=== PATIENT | male | born 1970 | race Caucasian/White ===

== ENCOUNTER 2018-02-21 04:35 | Emergency (ER) | payer OTHER ==
[2018-02-21] MEDS ORDERED: LIDOCAINE 1% W/EPI 1:100,000 MDV 50 ML VIAL ONE (05:21)
[2018-02-21] MEDS ORDERED: AMOX/K CLAV 875 MG TAB ONE (05:38)
--- NOTE | 2018-02-21 05:42 | ER ---
Nurse's Notes [facility] Name: Jackson Ba Age: 47 yrs Sex: Male : 1970 Arrival Date: 02/21/2018 Time: 04:36 Bed 15 Private MD: Diagnosis: Periapical abscess without sinus Presentation: 02/21 04:48 Presenting complaint: Patient states: I woke up yesterday just feeling bad and woke up jb4 today just feeling worse. I have facial swelling to the left side of my face along with congestion and pain all over. Transition of care: patient was not received from another setting of care. Onset of symptoms was February 20, 2018. Risk Assessment: Do you want to hurt yourself or someone else? Patient reports no desire to harm self or others. Initial Sepsis Screen: Does the patient meet any 2 criteria? HR > 90 bpm. Yes Does the patient have a suspected source of infection? No. Patient's initial sepsis screen is negative. Care prior to arrival: None. 04:48 Method Of Arrival: Ambulatory jb4 04:48 Acuity: TERRANCE 3 jb4 Triage Assessment: 04:51 General: Appears in no apparent distress. uncomfortable, Behavior is calm, cooperative, jb4 appropriate for age, swelling noted to the left side of pt's face.. Pain: Complains of pain in generalized Pain currently is 7 out of 10 on a pain scale. at worst was 10 out of 10 on a pain scale. Quality of pain is described as aching. EENT: No signs and/or symptoms were reported regarding the EENT system. Neuro: Level of Consciousness is awake, alert, obeys commands, Oriented to person, place, time, situation. Cardiovascular: Heart tones S1 S2 present Patient's skin is warm and dry. Respiratory: Breath sounds are clear bilaterally. GI: No signs and/or symptoms were reported involving the gastrointestinal system. : No signs and/or symptoms were reported regarding the genitourinary system. Derm: Skin is intact, Skin is pink, warm \\T\\ dry. Musculoskeletal: Circulation, motion, and sensation intact. Historical: - Allergies: 04:57 No Known Allergies; jb4 - Home Meds: 04:51 aspirin 81 mg Oral TbEC 1 tab once daily [Active]; lisinopril 5 mg Oral tab 1 tab once jb4 daily [Active]; - PMHx: 04:51 Hypertension; Diabetes - NIDDM; jb4 - PSHx: 04:51 right hand; jb4 - Immunization history:: Adult Immunizations unknown, Flu vaccine is not up to date. - Social history:: Smoking status: Patient uses tobacco products, denies chronic smoking, but will smoke occasionally, Patient uses alcohol, on a daily basis. admits to "couple of beers" a day. - Ebola Screening: : No symptoms or risks identified at this time. Screenin:50 Abuse screen: Denies threats or abuse. Nutritional screening: No deficits noted. jb4 Tuberculosis screening: No symptoms or risk factors identified. Fall Risk None identified. Assessment: 04:50 General: see triage assessment. jb4 05:51 Reassessment: Patient appears in no apparent distress at this time. Patient and/or jb4 family updated on plan of care and expected duration. Pain level reassessed. Patient is alert, oriented x 3, equal unlabored respirations, skin warm/dry/pink. Discussed D/c, F/u with pt, denies questions or concerns. Instructed to take B/p medications as prescribed. Vital Signs: 04:51 BP 196 / 112; Pulse 92; Resp 20; Temp 97.8(O); Pulse Ox 97% on R/A; Weight 131.54 kg jb4 (R); Height 6 ft. 2 in. (187.96 cm) (R); Pain 7/10; 05:51 BP 184 / 107; Pulse 72; Resp 18; Pulse Ox 97% on R/A; jb4 04:51 Body Mass Index 37.23 (131.54 kg, 187.96 cm) jb4 04:51 provider notified of high B/p no orders at this time. jb4 05:51 Provider notified of high B/p, no orders at this time. jb4 ED Course: 04:36 Patient arrived in ED. ds1 04:47 Avelino Carrillo, ANGEL is Primary Nurse. jb4 04:50 Triage completed. jb4 04:50 Patient has correct armband on for positive identification. Bed in low position. Call [facility] light in reach. Side rails up X 1. Pulse ox on. NIBP on. 04:51 Arm band placed on. jb4 05:04 Ilia Goodrich MD is Attending Physician. gs 05:27 Assist provider with I \\T\\ D: of an abscess on left Periodontal abscess Set up I\\T\\D tray. sonia 4 Performed by Ilia Goodrich MD Patient tolerated well. 05:39 Sam Monroe DDS is Referral Physician. 05:58 Patient did not have IV access during this emergency room visit. jb4 Administered Medications: 05:27 Drug: Lidocaine-Epinephrine -1%: (1:100,000) 5 ml Volume: 20 ml; Route: Infiltration; jb4 05:31 Drug: Augmentin 875 mg Route: PO; jb4 05:50 Follow up: Response: No adverse reaction jb4 Outcome: 05:41 Discharge ordered by . 05:58 Discharged to home ambulatory. jb4 05:58 Condition: stable 05:58 Discharge instructions given to patient, Instructed on discharge instructions, follow up and referral plans. medication usage, Demonstrated understanding of instructions, follow-up care, medications, Prescriptions given X 2. 05:58 Patient left the ED. jb4 Signatures: Brandie Bowers ds1 Avelino Carrillo RN RN jb4 Ilia Goodrich MD MD Corrections: (The following items were deleted from the chart) 05:56 04:51 BP 196 / 112; Pulse 92bpm; Resp 20bpm; Pulse Ox 97% RA; Temp 97.8F Oral; 131.54 jb4 kg Reported; Height 6 ft. 2 in. Reported; BMI: 37.2; Pain 7/10; jb4 05:56 05:51 BP 184 / 107; Pulse 72bpm; Resp 18bpm; Pulse Ox 97% RA; jb4 jb4 05:57 05:51 Reassessment: Patient appears in no apparent distress at this time. Patient jb4 and/or family updated on plan of care and expected duration. Pain level reassessed. Patient is alert, oriented x 3, equal unlabored respirations, skin warm/dry/pink. jb4
--- NOTE | 2018-02-21 05:42 | EDPHYS ---
Physician Documentation [facility] Name: Jackson Ba Age: 47 yrs Sex: Male : 1970 Arrival Date: 02/21/2018 Time: 04:36 Bed 15 Private MD: ED Physician Ilia Goodrich HPI: 02/21 05:31 This 47 yrs old Male presents to ER via Ambulatory with complaints of Facial gs Swelling, Congestion, Pain All Over. 05:31 The patient presents with swelling. The problem is located in the left cheek. Onset: gs The symptoms/episode began/occurred today. Duration: The symptoms are continuous. Modifying factors: the symptoms are aggravated by chewing. Associated signs and symptoms: Pertinent negatives: dysphagia, fever, inability to eat. Severity of symptoms: At their worst the symptoms were moderate, in the emergency department the symptoms are unchanged. The patient has not experienced similar symptoms in the past. Historical: - Allergies: 04:57 No Known Allergies; jb4 - Home Meds: 04:51 aspirin 81 mg Oral TbEC 1 tab once daily [Active]; lisinopril 5 mg Oral tab 1 tab once jb4 daily [Active]; - PMHx: 04:51 Hypertension; Diabetes - NIDDM; jb4 - PSHx: 04:51 right hand; jb4 - Immunization history:: Adult Immunizations unknown, Flu vaccine is not up to date. - Social history:: Smoking status: Patient uses tobacco products, denies chronic smoking, but will smoke occasionally, Patient uses alcohol, on a daily basis. admits to "couple of beers" a day. - Ebola Screening: : No symptoms or risks identified at this time. ROS: 05:31 All other systems are negative. gs Exam: 05:31 Eyes: Pupils equal round and reactive to light, extra-ocular motions intact. Lids and gs lashes normal. Conjunctiva and sclera are non-icteric and not injected. Cornea within normal limits. Periorbital areas with no swelling, redness, or edema. Neck: Trachea midline, no thyromegaly or masses palpated, and no cervical lymphadenopathy. Supple, full range of motion without nuchal rigidity, or vertebral point tenderness. No Meningismus. Chest/axilla: Normal chest wall appearance and motion. Nontender with no deformity. No lesions are appreciated. Cardiovascular: Regular rate and rhythm with a normal S1 and S2. No gallops, murmurs, or rubs. Normal PMI, no JVD. No pulse deficits. Respiratory: Lungs have equal breath sounds bilaterally, clear to auscultation and percussion. No rales, rhonchi or wheezes noted. No increased work of breathing, no retractions or nasal flaring. Abdomen/GI: Soft, non-tender, with normal bowel sounds. No distension or tympany. No guarding or rebound. No evidence of tenderness throughout. Back: No spinal tenderness. No costovertebral tenderness. Full range of motion. Skin: Warm, dry with normal turgor. Normal color with no rashes, no lesions, and no evidence of cellulitis. MS/ Extremity: Pulses equal, no cyanosis. Neurovascular intact. Full, normal range of motion. Neuro: Awake and alert, GCS 15, oriented to person, place, time, and situation. Cranial nerves II-XII grossly intact. Motor strength 5/5 in all extremities. Sensory grossly intact. Cerebellar exam normal. Normal gait. 05:31 Constitutional: The patient appears alert, awake. 05:31 Head/face: Noted is swelling, that is mild, of the left cheek. 05:31 ENT: Dental exam: abscess, that is mild, specifically in the upper left first molar (#14). Vital Signs: 04:51 BP 196 / 112; Pulse 92; Resp 20; Temp 97.8(O); Pulse Ox 97% on R/A; Weight 131.54 kg jb4 (R); Height 6 ft. 2 in. (187.96 cm) (R); Pain 7/10; 05:51 BP 184 / 107; Pulse 72; Resp 18; Pulse Ox 97% on R/A; jb4 04:51 Body Mass Index 37.23 (131.54 kg, 187.96 cm) jb4 04:51 provider notified of high B/p no orders at this time. jb4 05:51 Provider notified of high B/p, no orders at this time. jb4 Procedures: 05:31 I \\T\\ D: Incision and drainage was performed for an abscess of the left upper left first gs molar (#14) Anesthetized with 2 ml's 1% Lidocaine w/ Epi. Incised with #11 blade. Drained small amount purulent fluid. the patient tolerated the procedure well. MDM: 05:13 Patient medically screened. 05:31 Data reviewed: vital signs, nurses notes. Counseling: I had a detailed discussion with the patient and/or guardian regarding: the historical points, exam findings, and any diagnostic results supporting the discharge/admit diagnosis, the need for outpatient follow up. Administered Medications: 05:27 Drug: Lidocaine-Epinephrine -1%: (1:100,000) 5 ml Volume: 20 ml; Route: Infiltration; jb4 05:31 Drug: Augmentin 875 mg Route: PO; jb4 05:50 Follow up: Response: No adverse reaction jb4 Disposition: 02/21/18 05:41 Discharged to Home. Impression: Periapical abscess without sinus. - Condition is Stable. - Discharge Instructions: Dental Abscess. - Prescriptions for Augmentin 875- 125 mg Oral Tablet - take 1 tablet by ORAL route every 12 hours for 7 days; 13 tablet. Tylenol- Codeine #4 300-60 mg Oral Tablet - take 1 tablet by ORAL route every 6 hours As needed; 10 tablet. - Work release form, Medication Reconciliation Form, Thank You Letter, Antibiotic Education, Prescription Opioid Use form. - Follow up: Sam Monroe DDS; When: 2 - 3 days; Reason: Re-evaluation by your physician. Signatures: Avelino Carrillo RN RN 4 Ilia Goodrich MD MD Corrections: (The following items were deleted from the chart) 05:58 05:41 02/21/2018 05:41 Discharged to Home. Impression: Periapical abscess without jb4 sinus. Condition is Stable. Forms are Medication Reconciliation Form, Thank You Letter, Antibiotic Education, Prescription Opioid Use. Follow up: Sam Monroe; When: 2 - 3 days; Reason: Re-evaluation by your physician.
== END 2018-02-21 05:58 | disposition home or self-care (01) ==
LOC: ER 04:35
PROC: 0C9WXZ0 Drainage of Upper Tooth, External Approach, Single (ICD-10-PCS; principal; 2018-02-21)
DX: K04.7 Periapical abscess without sinus (principal); I10 Essential (primary) hypertension; E11.9 Type 2 diabetes mellitus without complications; Z72.0 Tobacco use; Z79.82 Long term (current) use of aspirin
CPT/HCPCS: 99284

== ENCOUNTER 2024-03-21 09:05 | Inpatient (IN) | payer OTHER, SELFPAY ==
--- OUTSIDE RECORDS SUMMARY | 2024-03-21 09:08 | XMS REPORT | Continuity of Care Document ---
Author Name Unknown Address [address] [place] [address] [facility] Address [address] [place] [address] Care Team Providers Care Director Veterinary Name Role Phone Unavailable Unavailable Unavailable Encounters Start Date/Time End Date/Time Encounter Type Admission Type Attending Clinicians Care Facility Care Department Encounter ID Source 2021-12-30 15:46:00 2021-12-30 15:46:00 Outpatient Shonda Jeong [facility] [id number] 3 [facility] Results Test Description Test Time Test Comments Results Result Co mments Source COMPREHENSIVE METABOLIC [id number] 05:55:15* Test Item Value Reference Range Interpretation Comme nts GLUCOSE (test code = 2217) 100 MG/DL 70-99 H BUN (test code = 2208) 15 MG/DL 6-20 CREATININE (test code = 2214) 1.07 MG/DL 0.80-1.40 eGFR (2020 CKD-EPI) (test code = 61914) 83 ML/MIN/1.73 >60 CALC BUN/CREAT (test code = 2235) 14 RATIO 6-28 SODIUM (test code = 2231) 142 MEQ/L 133-146 POTASSIUM (test code = 2228) 4.3 MEQ/L 3.5-5.4 CHLORIDE (test code = 2215) 103 MEQ/L 95-107 CARBON DIOXIDE (test code = 2206) 26 MEQ/L 19-31 CALCIUM (test code = 2209) 9.8 MG/DL 8.5-10.5 PROTEIN, TOTAL (test code = 2229) 8.0 G/DL 6.1-8.3 ALBUMIN (test code = 2201) 4.3 G/DL 3.5-5.2 CALC GLOBULIN (test code = 2240) 3.7 G/DL 1.9-3.7 CALC A/G RATIO (test code = 2234) 1.2 RATIO 1.0-2.6 BILIRUBIN, TOTAL (test code = 2207) 0.5 MG/DL See_Comment [Automated [employer] ssage] The system which generated this result transmitted reference range: <=1.2. The reference range was not used to interpret this result as normal/abnormal. ALKALINE PHOSPHATASE (test code = 2204) 77 U/L 40-121 AST (test code = 2218) 16 U/L 9-50 ALT (test code = 2219) 22 U/L 5-50 UNLESS OTHERWISE INDICATED, ALL TESTING PERFORMED [facility] [address] [place] [id number] DOORKEEPER: RUBEN ARAGON M.D. CLIA NUMBER [id number] [facility] [place]. [id number] CBC W/AUTO DIFF WITH [id number] 05:52:05* Test Item Value Reference Range Interpretation Comme nts WBC (test code = 1001) 5.4 K/UL 3.5-11.0 RBC (test code = 1002) 4.98 M/UL 4.50-6.10 HEMOGLOBIN (test code = 1003) 16.1 G/DL 13.5-17.0 HEMATOCRIT (test code = 1004) 46.9 % 40.0-51.0 MCV (test code = 1005) 94.2 fL 80.0-99.0 MCH (test code = 1006) 32.3 PG 25.0-33.0 MCHC (test code = 1007) 34.3 G/DL 31.0-36.0 RDW (test code = 1038) 11.7 % 11.5-15.0 NEUTROPHILS (test code = 1008) 60.2 % LYMPHOCYTES (test code = 1010) 28.9 % MONOCYTES (test code = 1011) 8.8 % EOSINOPHILS (test code = 1012) 1.1 % BASOPHILS (test code = 1013) 0.6 % IMMATURE GRANYLOCYTES (test code = 1036) 0.4 % NUCLEATED RBCS (test code = 1065) 0.0 /100 WBC'S See_Comment [Automated messa ge] The system which generated this result transmitted reference range: 0.0. The reference range was not used to interpret this result as normal/abnormal. PLATELET COUNT (test code = 1015) 181 K/UL 130-400 ABSOLUTE NEUTROPHILS (test code = 1066) 3.23 K/UL 1.50-7.50 ABSOLUTE LYMPHOCYTES (test code = 1067) 1.55 K/UL 1.00-4.00 ABSOLUTE MONOCYTES (test code = 1068) 0.47 K/UL 0.20-1.00 ABSOLUTE EOSINOPHILS (test code = 1040) 0.06 K/UL 0.00-0.50 ABSOLUTE BASOPHILS (test code = 1069) 0.03 K/UL 0.00-0.20 ABS IMMATURE GRANULOCYTES (test code = 1020) 0.02 K/UL 0.00-0.10 ABS NUCLEATED RBCS (test code = 00275) 0.00 K/UL 0.00-0.11
[2024-03-21] MEDS ORDERED: ONDANSETRON 4 MG/2 ML VIAL ONE (09:22)
[2024-03-21] MEDS ORDERED: HYDROMORPHONE HCL 1 MG/ML INJ ONE ×2 (09:22→12:20)
[2024-03-21] MEDS ORDERED: LABETALOL 20 MG/4ML SYRINGE IV ONE ×2 (09:22→10:21)
[2024-03-21 09:50] LABS: Absolute Basophils 0.1 K/uL (0-0.5); Absolute Lymphocytes (CBC) 0.9 K/uL (0.7-4.9); Absolute Monocytes 0.5 K/uL (0.1-1.3); Absolute Neutrophil 9.5 K/uL (1.8-8.0); Basophils % 0.7 % (0-1.3); Eosinophils % 0.1 % (0-4.4); Hematocrit 49.3 % (39.6-49.0); Hemoglobin 16.4 g/dL (13.6-17.9); Lymphocytes % 8.6 % (15.3-44.8); MCH 32.7 pg (27.0-35.0); MCHC 33.3 g/dL (32.0-36.0); MCV 98.1 fL (80-100); MPV 9.7 fL (7.6-11.3); Monocytes % 4.7 % (3.3-12.3); Neutrophils % 85.9 % (41.7-73.7); Platelets 167 thou/uL (152-406); RBC Red Blood Cell Count 5.02 M/uL (4.33-5.43); Red Cell Distribution Width 13.3 % (12.1-15.2)
--- NOTE | 2024-03-21 09:57 | RAD REPORT ---
EXAM: CT brain without contrast HISTORY: Fall with head injury. Hypertension urgency. COMPARISON: None TECHNIQUE: Multiple contiguous axial images were obtained and a CT of the brain without contrast.. Sagittal and coronal reconstruction performed. Automated exposure control, adjustment of the mA and/or kV according to patient size, and/or iterative reconstruction. Unless otherwise specified, incidental f indings do not require dedicated imaging follow-up FINDINGS: An intracranial bleed is not seen Ventricles are normal caliber No extra-axial fluid collection noted 1.5 cm low-density area left basal ganglia. Additional old lacunar infarctions right and left bowel mass and bilateral basal ganglia. No fluid within the visualized sinuses or mastoids noted. IMPRESSION: 1.5 cm low-density area left basal ganglia has the appearance of an infarction. The age is indetermin ate. MRI is recommended. Additional old lacunar infarctions right and left thalamus and basal ganglia
[2024-03-21 10:01] LABS: PT Prothrombin Time 12.2 SECONDS (9.4-12.5); Protime INR 1.09
--- NOTE | 2024-03-21 10:02 | RAD REPORT ---
EXAMINATION: CT LUMBAR SPINE WITHOUT CONTRAST CLINICAL INDICATION: Fall with back pain TECHNIQUE: Axial CT images were obtained through the lumbar spine in soft tissue and bone windows wit hout intravenous contrast. Coronal and Sagittal reformatted images were created from the data set. One or more of the following dose reduction techniques were used: Automated exposure control, adjustm ent of the mA and/ or kV according to patient size, and/or iterative reconstruction. Unless otherwise specified, incidental findings do not require dedicated imaging follow-up. COMPARISON: No prior exam. FINDINGS: For purposes of this dictation, it is assumed that there are 5 non rib-bearing lumbar type vertebrae, and the most caudal fully segmented lumbar vertebra is labeled L5. Mild to moderate compression fracture L2 vertebral body estimated 30%.. Retropulsion of bone into the spinal canal results in an approximately 10% narrowing of the thecal sac. No dislocation.. Spondylosis L3-4 results in mild to moderate narrowing of the thecal sac. Slight anterior subluxation L5 on S1. Spondylolysis L5 IMPRESSION: Mild to moderate compression fracture L2 vertebral body appears acute. Spondylosis L3-4 results in mild to moderate central spinal stenosis
--- NOTE | 2024-03-21 10:04 | RAD REPORT ---
Procedure: Chest Single View HISTORY: Hypertension COMPARISON: none FINDINGS: The lungs appear clear of acute infiltrate. No significant pleural effusion noted. The heart is normal size. IMPRESSION: No acute abnormality is displayed.
[2024-03-21 10:15] LABS: Albumin 3.7 g/dL (3.4-5.0); Albumin/Globulin Ratio 0.8 (1.1-1.8); Anion Gap 8.8 mEq/L (5.0-15.0); Bilirubin Direct 0.2 mg/dL (0-0.2); Bilirubin Indirect, Calculated 0.4 mg/dL (0.2-0.8); Bilirubin Total 0.6 mg/dL (0.2-1.0); Globulin 4.6 g/dL (2.3-3.5); Magnesium 1.9 mg/dL (1.6-2.4); Potassium 3.8 mEq/L (3.5-5.1); Protein, Total 8.3 g/dL (6.4-8.2)
[2024-03-21] MEDS ORDERED: LABETALOL HCL 100 MG/20 ML ONE (10:47)
--- NOTE | 2024-03-21 10:54 | ER ---
Nurse's Notes [facility] Name: Jackson Ba Age: 54 yrs Sex: Male : 1970 Arrival Date: 03/21/2024 Time: 09:05 Bed 3 Private MD: Diagnosis: Basal ganglia infarct, lumbar compression fracture, hypertensive urgency Presentation: 03/21 09:10 Chief complaint: EMS states: patient fell about 0330 this morning, complains of lower ko1 back pain. Coronavirus screen: At this time, the client does not indicate any symptoms associated with coronavirus-19. Ebola Screen: No symptoms or risks identified at this time. Initial Sepsis Screen: Does the patient meet any 2 criteria? No. Patient's initial sepsis screen is negative. Does the patient have a suspected source of infection? No. Patient's initial sepsis screen is negative. Risk Assessment: Do you want to hurt yourself or someone else? Patient reports no desire to harm self or others. Onset of symptoms was March 21, 2024. Care prior to arrival: Medication(s) given: fentanyl 100mcg iv total (2 separate doses), labetolol 20mg IV total (2 separate doses) IV initiated. 18 GA, in the left antecubital area. Mechanism of Injury: Fall from standing position. 09:10 Method Of Arrival: EMS: [facility] ko1 09:10 Acuity: TERRANCE 3 ko1 Triage Assessment: 09:18 General: Appears uncomfortable, Behavior is calm, cooperative, appropriate for age. ko1 Pain: Complains of pain in lower back and back of knees. Historical: - Allergies: 09:18 No Known Allergies; ko1 - PMHx: 09:18 Hypertension; Diabetes - NIDDM; ko1 - PSHx: 09:18 None; ko1 - Immunization history:: Adult Immunizations unknown. - Infectious Disease History:: Denies. - Social history:: Smoking status: Patient denies any tobacco usage or history of. Screenin:30 [place] ED Fall Risk Assessment (Adult) History of falling in the last 3 months, ko1 including since admission Yes- single mechanical fall (1 pt) Confusion or Disorientation No (0 pts) Intoxicated or Sedated No (0 pts) Impaired Gait No (0 pts) Mobility Assist Device Used No (0 pt) Altered Elimination No (0 pt) Score/Fall Risk Level 0 - 2 = Low Risk Oriented to surroundings, Maintained a safe environment, Educated pt \T\ family on fall prevention, incl call for assistance when getting out of bed, Assessed \T\ reinforced patient's understanding of fall precautions, Provided non-skid footwear, Hourly rounding (assess needs \T\ fall precautionary measures) done. Abuse screen: Denies threats or abuse. Denies injuries from another. Nutritional screening: No deficits noted. Tuberculosis screening: No symptoms or risk factors identified. Assessment: 09:27 Neuro: No deficits noted. Cardiovascular: Patient's skin is warm and dry. high blood ko1 pressure. Respiratory: No deficits noted. GI: No deficits noted. : No deficits noted. EENT: No deficits noted. Derm: No deficits noted. Musculoskeletal: Reports pain in posterior aspect of left knee. Vital Signs: 09:10 BP 216 / 144; Pulse 104; Resp 15; Temp 97.6; Pulse Ox 98% on R/A; Weight 120.2 kg; ko1 09:30 BP 217 / 145; Pulse 97; Resp 14; Pulse Ox 97% ; ko1 09:41 BP 195 / 132; Pulse 91; Resp 15; Pulse Ox 95% on R/A; ko1 10:09 BP 205 / 135; Pulse 90; Resp 15; Pulse Ox 96% ; ko1 10:43 BP 210 / 132; Pulse 98; Resp 16; Pulse Ox 95% ; ko1 11:22 BP 184 / 109; Pulse 84; Resp 15; Pulse Ox 95% ; ko1 11:41 BP 158 / 102; Pulse 83; Resp 15; Pulse Ox 96% ; ko1 11:56 BP 167 / 96; Pulse 82; Resp 15; Pulse Ox 99% ; ko1 12:03 BP 211 / 190; Pulse 106; Resp 16; Pulse Ox 91% ; me1 12:15 BP 145 / 75; Pulse 96; Resp 16; Pulse Ox 91% ; me1 12:30 BP 154 / 92; Pulse 83; Resp 15; Pulse Ox 91% ; me1 12:45 BP 149 / 90; Pulse 72; Resp 14; Pulse Ox 91% ; me1 13:00 BP 146 / 96; Pulse 85; Resp 16; Temp 98.6; Pulse Ox 92% ; me1 ED Course: :09 Patient arrived in ED. sp3 09:09 Shlomo Rosales MD is Attending Physician. sp3 09:09 Pamela Irene, RN is Primary Nurse. ko1 09:18 Triage completed. ko1 09:18 Arm band placed on right wrist. Patient placed in an exam room, on a stretcher, on ko1 child monitor, on pulse oximetry, Patient notified of wait time. 09:30 Patient has correct armband on for positive identification. Bed in low position. Call ko1 light in reach. Side rails up X2. Provided Education on: labs. meds. Client placed on continuous cardiac and pulse oximetry monitoring. NIBP monitoring applied. potline monitor on. Door closed. Noise minimized. Lights dimmed. Pillow given. 09:30 Maintain EMS IV. Dressing intact. Good blood return noted. Site clean \T\ dry. Gauge \T\ ko 1 site: 18g L ac. Flushed with 10 mL NS. 09:31 CT Head Brain wo Cont In Process Unspecified. EDMS 09:32 CT Lumbar Spine Wo Con In Process Unspecified. EDMS 09:42 Basic Metabolic Panel Sent. ko1 09:42 CBC with Diff Sent. ko1 09:42 LFT's Sent. ko1 09:42 Magnesium Sent. ko1 09:42 NT PRO-BNP Sent. ko1 09:42 PT-INR Sent. ko1 09:42 Troponin HS Sent. ko1 09:48 EKG done, by ED staff, reviewed by Shlomo Rosales MD. em1 09:57 XRAY Chest (1 view) In Process Unspecified. EDMS 10:54 Dakota Quintanilla is Hospitalizing Provider. sp3 11:56 Report given to Loyda Cohen RN. ko1 13:06 No provider procedures requiring assistance completed. Patient admitted, IV remains in me1 place. Administered Medications: 09:30 Drug: Ondansetron IVP 4 mg IVP once; over 2 minutes Route: IVP; Site: left antecubital; ko1 09:45 Follow up: Response: No adverse reaction ko1 09:33 Drug: HYDROmorphone IVP 1 mg IVP once Route: IVP; Site: left antecubital; ko1 09:48 Follow up: Response: No adverse reaction; Pain is decreased ko1 09:38 Drug: Labetalol IV 20 mg IV at calculated rate once Route: IV; Rate: calculated rate; ko1 Site: left antecubital; 09:41 Follow up: Response: No adverse reaction; IV Status: Completed infusion me1 09:53 Follow up: Response: No adverse reaction ko1 10:22 Drug: Labetalol IV 20 mg IV at calculated rate once over 2 mins Route: IV; Rate: ko1 calculated rate; Infused Over: 2 mins; Site: left antecubital; 10:26 Follow up: Response: No adverse reaction; IV Status: Completed infusion me1 10:37 Follow up: Response: No adverse reaction ko1 10:51 Drug: Labetalol IV 40 mg IV at calculated rate once over 2 mins Route: IV; Rate: ko1 calculated rate; Infused Over: 2 mins; Site: left antecubital; 11:00 Follow up: Response: No adverse reaction; IV Status: Completed infusion me1 11:07 Drug: Aspirin PO 325 mg PO once Route: PO; ko1 11:37 Follow up: Response: No adverse reaction ko1 11:07 Drug: niCARdipine IV 5 mg/hr IV at calculated rate See Administration Instructions; ko1 (Standard concentration 25 mg / 250 mL NS); Recommended max rate 15 mg/hr; Titrate 2.5 mg/hr as often as every 15 minutes to achieve goal (see titration policy); Goal parameter SBP less than 160 mmHg Route: IV; Rate: calculated rate; Site: left antecubital; 11:25 Follow up: Rate change 10 mg/hr ko1 13:36 Follow up: IV Status: Infusion continued upon admission me1 12:27 Drug: HYDROmorphone IVP 1 mg IVP once Route: IVP; Site: left antecubital; me1 12:59 Follow up: Response: No adverse reaction; Pain is decreased me1 Medication: 11:41 VIS not applicable for this client. ko1 Outcome: 10:54 Decision to Hospitalize by Provider. sp3 13:06 Admitted to ICU accompanied by nurse, via stretcher, room -5, on monitor, with chart, me1 Report called to ANGEL Suarez 13:06 Condition: stable 13:06 Instructed on the need for admit, 13:36 Patient left the ED. me1 Signatures: Dispatcher [employer] Duy Hampton em1 Shlomo Rosales MD MD sp3 Pamela Irene RN RN ko1 Loyda Vo, RN RN me1
--- NOTE | 2024-03-21 10:54 | EDPHYS ---
Physician Documentation [facility] Name: Jackson Ba Age: 54 yrs Sex: Male : 1970 Arrival Date: 03/21/2024 Time: 09:05 Bed 3 Private MD: ED Physician Shlomo Rosales HPI: 03/21 09:37 This 54 yrs old Male presents to ER via EMS with complaints of Fall Injury. sp3 09:37 54-year-old male with history of hypertension and diabetes, noncompliant and has not sp3 seen a doctor in over 15 years and is on no medications now presents to the ED with chief complaint low back pain from a mechanical fall. Patient states she has had chronic back pain for years and when he got up to use the bathroom at 3 AM he had a bout of pain, tripped and then fell. He landed on his lower back at that time. He denies any other injury including head injury, neck injury upper torso or other extremity injury. He currently denies headache, neck pain, chest pain, shortness of breath, upper back pain, abdominal pain, extremity pain, or any other signs or symptoms on ROS at this time. Patient was hypotensive for EMS in the 230s systolic.. Historical: - Allergies: 09:18 No Known Allergies; ko1 - PMHx: 09:18 Hypertension; Diabetes - NIDDM; ko1 - PSHx: 09:18 None; ko1 - Immunization history:: Adult Immunizations unknown. - Infectious Disease History:: Denies. - Social history:: Smoking status: Patient denies any tobacco usage or history of. ROS: 09:38 Constitutional: Negative for fever, chills, and weight loss, Eyes: Negative for injury, sp3 pain, redness, and discharge, Neck: Negative for injury, pain, and swelling, Respiratory: Negative for shortness of breath, cough, wheezing, and pleuritic chest pain, Abdomen/GI: Negative for abdominal pain, nausea, vomiting, diarrhea, and constipation, MS/Extremity: Negative for injury and deformity, Skin: Negative for injury, rash, and discoloration, Neuro: Negative for headache, weakness, numbness, tingling, and seizure, Psych: Negative for depression, anxiety, suicide ideation, homicidal ideation, and hallucinations, Allergy/Immunology: Negative for hives, rash, and allergies, Endocrine: Negative for neck swelling, polydipsia, polyuria, polyphagia, and marked weight changes, 09:38 All other systems are negative, Exam: 09:39 Constitutional: This is a well developed, well nourished patient who is awake, alert, sp3 and in no acute distress. Head/Face: Normocephalic, atraumatic. Eyes: Pupils equal round and reactive to light, extra-ocular motions intact. Lids and lashes normal. Conjunctiva and sclera are non-icteric and not injected. Cornea within normal limits. Periorbital areas with no swelling, redness, or edema. ENT: Nares patent. No nasal discharge, no septal abnormalities noted. External auditory canals are clear. Oropharynx with no redness, swelling, or masses, exudates, or evidence of obstruction, uvula midline. Mucous membranes moist. Neck: Trachea midline, no thyromegaly or masses palpated, and no cervical lymphadenopathy. Supple, full range of motion without nuchal rigidity, or vertebral point tenderness. No Meningismus. Chest/axilla: Normal chest wall appearance and motion. Nontender with no deformity. No lesions are appreciated. Respiratory: Lungs have equal breath sounds bilaterally, clear to auscultation and percussion. No rales, rhonchi or wheezes noted. No increased work of breathing, no retractions or nasal flaring. Abdomen/GI: Soft, non-tender, with normal bowel sounds. No distension or tympany. No guarding or rebound. No evidence of tenderness throughout. Skin: Warm, dry with normal turgor. Normal color with no rashes, no lesions, and no evidence of cellulitis. MS/ Extremity: Pulses equal, no cyanosis. Neurovascular intact. Full, normal range of motion. Neuro: Awake and alert, GCS 15, oriented to person, place, time, and situation. Cranial nerves II-XII grossly intact. Motor strength 5/5 in all extremities. Sensory grossly intact. Cerebellar exam normal. Normal gait. Psych: Awake, alert, with orientation to person, place and time. Behavior, mood, and affect are within normal limits. 09:39 Cardiovascular: Blood pressure significantly high at 216/144., 09:39 Back: Pain to palpation in the lower back musculature. Positive pain on straight leg raise particularly right greater than left. No upper back pain, step-offs or other abnormalities noted., 09:40 ECG was reviewed by the Attending Physician. EKG demonstrates normal sinus rhythm at sp3 100 bpm with normal intervals except for 56, leftward axis, high voltage, nonspecific diffuse ST/T changes without evidence of acute ischemia. Vital Signs: 09:10 BP 216 / 144; Pulse 104; Resp 15; Temp 97.6; Pulse Ox 98% on R/A; Weight 120.2 kg; ko1 09:30 BP 217 / 145; Pulse 97; Resp 14; Pulse Ox 97% ; ko1 09:41 BP 195 / 132; Pulse 91; Resp 15; Pulse Ox 95% on R/A; ko1 10:09 BP 205 / 135; Pulse 90; Resp 15; Pulse Ox 96% ; ko1 10:43 BP 210 / 132; Pulse 98; Resp 16; Pulse Ox 95% ; ko1 11:22 BP 184 / 109; Pulse 84; Resp 15; Pulse Ox 95% ; ko1 11:41 BP 158 / 102; Pulse 83; Resp 15; Pulse Ox 96% ; ko1 11:56 BP 167 / 96; Pulse 82; Resp 15; Pulse Ox 99% ; ko1 12:03 BP 211 / 190; Pulse 106; Resp 16; Pulse Ox 91% ; me1 12:15 BP 145 / 75; Pulse 96; Resp 16; Pulse Ox 91% ; me1 12:30 BP 154 / 92; Pulse 83; Resp 15; Pulse Ox 91% ; me1 12:45 BP 149 / 90; Pulse 72; Resp 14; Pulse Ox 91% ; me1 13:00 BP 146 / 96; Pulse 85; Resp 16; Temp 98.6; Pulse Ox 92% ; me1 MDM: 09:09 Medical Screening Exam initiated sp3 09:39 Data reviewed: vital signs, nurses notes, lab test result(s), EKG, radiologic studies. sp3 ED course: 54-year-old male with low back pain secondary to mechanical fall on a chronic back pain scenario. Patient also has been noncompliant for his chronic medical conditions including hypertension and diabetes. Currently blood pressure 216/144. Differential diagnosis includes hypertensive urgency versus emergency, low back pain due to musculoskeletal injury soft tissue versus bone. I am not highly suspicious of aortic pathology, GI pathology, pathology, CVA/TIA or any other critical process. Workup will include CT scan of the lumbar spine from a trauma standpoint and from hypertensive urgency standpoint full workup EKG, CT head, chest x-ray, labs and general supportive care. Labetalol, Dilaudid and ondansetron IV for symptomatic control. Disposition pending workup and patient course.. 10:41 ED course: CT demonstrates small basal ganglia infarct, and L2 compression fracture. sp3 Will place on for the labetalol as needed for hypertensive urgency. Patient will be admitted to medicine service.. 03/21 09:13 Order name: Basic Metabolic Panel; Complete Time: 10:17 sp3 03/21 09:13 Order name: CBC with Diff; Complete Time: 11:21 sp3 03/21 09:13 Order name: LFT's; Complete Time: 10:17 sp3 03/21 09:13 Order name: Magnesium; Complete Time: 10:17 sp3 03/21 09:13 Order name: NT PRO-BNP; Complete Time: 10:17 sp3 03/21 09:13 Order name: PT-INR; Complete Time: 10:07 sp3 03/21 09:13 Order name: Troponin HS; Complete Time: 10:17 sp3 03/21 11:17 Order name: CBC Smear Scan; Complete Time: 11:21 EDMS 03/21 12:45 Order name: Thyroid Stimulating Hormone EDMS 03/21 12:45 Order name: CBC with Automated Diff EDMS 03/21 12:45 Order name: CBC with Automated Diff EDMS 03/21 12:45 Order name: CBC with Automated Diff EDMS 03/21 12:45 Order name: CBC with Automated Diff EDMS 03/21 12:45 Order name: Comprehensive Metabolic Panel EDMS 03/21 12:45 Order name: Comprehensive Metabolic Panel EDMS 03/21 12:45 Order name: Comprehensive Metabolic Panel EDMS 03/21 12:45 Order name: Comprehensive Metabolic Panel EDMS 03/21 12:45 Order name: Lipid Profile EDMS 03/21 12:45 Order name: Lipid Profile EDMS 03/21 12:45 Order name: Magnesium EDMS 03/21 12:45 Order name: Magnesium EDMS 03/21 12:45 Order name: Magnesium EDMS 03/21 12:45 Order name: Magnesium EDMS 03/21 12:45 Order name: Protime (+INR) EDMS 03/21 12:45 Order name: Protime (+INR) EDMS 03/21 12:45 Order name: PTT, Activated Partial Thromb EDMS 03/21 12:45 Order name: PTT, Activated Partial Thromb EDMS 03/21 09:13 Order name: XRAY Chest (1 view); Complete Time: 10:07 sp3 03/21 09:13 Order name: CT Head Brain wo Cont; Complete Time: 10:07 sp3 03/21 09:13 Order name: CT Lumbar Spine Wo Con; Complete Time: 10:07 sp3 03/21 12:45 Order name: CONS Physician Consult EDNV 03/21 09:13 Order name: Cardiac monitoring; Complete Time: 09:20 sp3 03/21 09:13 Order name: EKG - Nurse/Tech; Complete Time: 09:42 sp3 03/21 09:13 Order name: IV Saline Lock; Complete Time: 09:20 sp3 03/21 09:13 Order name: Labs collected and sent; Complete Time: 09:42 sp3 03/21 09:13 Order name: O2 Per Protocol; Complete Time: 09:20 sp3 03/21 09:13 Order name: O2 Sat Monitoring; Complete Time: 09:20 sp3 Administered Medications: 09:30 Drug: Ondansetron IVP 4 mg IVP once; over 2 minutes Route: IVP; Site: left antecubital; ko1 09:45 Follow up: Response: No adverse reaction ko1 09:33 Drug: HYDROmorphone IVP 1 mg IVP once Route: IVP; Site: left antecubital; ko1 09:48 Follow up: Response: No adverse reaction; Pain is decreased ko1 09:38 Drug: Labetalol IV 20 mg IV at calculated rate once Route: IV; Rate: calculated rate; ko1 Site: left antecubital; 09:41 Follow up: Response: No adverse reaction; IV Status: Completed infusion me1 09:53 Follow up: Response: No adverse reaction ko1 10:22 Drug: Labetalol IV 20 mg IV at calculated rate once over 2 mins Route: IV; Rate: ko1 calculated rate; Infused Over: 2 mins; Site: left antecubital; 10:26 Follow up: Response: No adverse reaction; IV Status: Completed infusion me1 10:37 Follow up: Response: No adverse reaction ko1 10:51 Drug: Labetalol IV 40 mg IV at calculated rate once over 2 mins Route: IV; Rate: ko1 calculated rate; Infused Over: 2 mins; Site: left antecubital; 11:00 Follow up: Response: No adverse reaction; IV Status: Completed infusion me1 11:07 Drug: Aspirin PO 325 mg PO once Route: PO; ko1 11:37 Follow up: Response: No adverse reaction ko1 11:07 Drug: niCARdipine IV 5 mg/hr IV at calculated rate See Administration Instructions; ko1 (Standard concentration 25 mg / 250 mL NS); Recommended max rate 15 mg/hr; Titrate 2.5 mg/hr as often as every 15 minutes to achieve goal (see titration policy); Goal parameter SBP less than 160 mmHg Route: IV; Rate: calculated rate; Site: left antecubital; 11:25 Follow up: Rate change 10 mg/hr ko1 13:36 Follow up: IV Status: Infusion continued upon admission me1 12:27 Drug: HYDROmorphone IVP 1 mg IVP once Route: IVP; Site: left antecubital; me1 12:59 Follow up: Response: No adverse reaction; Pain is decreased me1 Disposition Summary: 03/21/24 10:54 Hospitalization Ordered Notes: Hospitalization Status: Inpatient Admission sp3 Provider: Dakota Quintanilla sp3 Condition: Stable sp3 Problem: an acute exacerbation sp3 Symptoms: have worsened sp3 Bed/Room Type: Standard sp3 Location: Intensive Care Unit(03/21/24 12:43) eb Room Assignment: -(03/21/24 12:43) eb Diagnosis - Basal ganglia infarct, lumbar compression fracture, hypertensive urgency sp3 Forms: - Medication Reconciliation Form sp3 - SBAR form sp3 - Leadership Thank You Letter sp3 Critical care time excluding procedures: 10:42 Critical care time: Bedside Care: 20 minutes, Consultation: 10 minutes. Total time: 30 sp3 minutes Signatures: Dispatcher [employer] Mary Matthew Setul, MD MD sp3 Pamela Irene RN RN ko1 Loyda Vo RN RN me1 Corrections: (The following items were deleted from the chart) 09:14 09:13 BASIC METABOLIC PANEL+C.LAB.BRZ ordered. EDMS EDMS 09:14 09:13 CBC+H.LAB.BRZ ordered. EDMS EDMS 09:14 09:13 HEPATIC FUNCTION+C.LAB.BRZ ordered. EDMS EDMS 09:14 09:13 MAGNESIUM+C.LAB.BRZ ordered. EDMS EDMS 09:14 09:13 PROBNP+C.LAB.BRZ ordered. EDMS EDMS 09:14 09:13 PROTIME (+INR)+COAG.LAB.BRZ ordered. EDMS EDMS 09:14 09:13 Troponin High Sensitivity+C.LAB.BRZ ordered. EDMS EDMS 09:14 09:14 Chest Single View+RAD.RAD.BRZ ordered. EDMS EDMS 09:14 09:14 Head Brain Wo Cont+CT.RAD.BRZ ordered. EDMS EDMS 09:14 09:14 Spine Lumbar Wo Con+CT.RAD.BRZ ordered. EDMS EDMS 12:43 10:54 Telemetry/MedSurg (Inpatient) sp3 eb 12:43 10:54 sp3 eb
[2024-03-21] MEDS ORDERED: Nicardipine/NS 25 MG/250 ML KIT IV ONE (10:59)
[2024-03-21] MEDS ORDERED: ASPIRIN 325 MG TAB ONE (11:05)
[2024-03-21 11:16] LABS: Blood Morphology Comment NOT SEEN (NOT SEEN); Platelet Estimate ADEQ; White Blood Cell Scan OK (OK)
--- NOTE | 2024-03-21 11:51 | P.HP ---
Certification for Inpatient Patient admitted to: Inpatient With expected LOS: >2 Midnights Patient will require the following post-hospital care: Rehabilitation Practitioner: I am a practitioner with admitting privileges, knowledge of patient current condition, hospital course, and medical plan of care. Services: Services provided to patient in accordance with Admission requirements found in Title 42 Section 412.3 of the Code of Federal Regulations Patient History Date of Service: 03/21/24 Primary Care Provider: None Reason for admission: back pain, leg weakness History of Present Illness: Mr. Ba is a 54-year-old male who denies medical problems. He sees no PCP and takes no home medications. For the past 3 days to 1 week, patient has had back pain. He states at 3 AM he got up to go to the bathroom and fell flat on his back and was unable to get up. He states he crawled to his chair and called a friend to pick him up this morning. He denies dizziness, seizure, chest pain, or shortness of breath. On exam he is a disheveled, older than stated age, incontinent gentleman with hypertensive urgency in the emergency department with initial pressures of 216/144. Patient is a daily drinker who says the amount varies. He denies history of DTs. In the emergency department workup he was found to have acute 1.5 cm basal ganglia infarct, and acute L2 vertebral body 30% compression fracture with approximately 10% narrowing of the thecal sac, spondylosis of L3-4 resulting in mild to moderate narrowing of the thecal sac, slight anterior subluxation of L5 on S1, and spondylosis of L5. On exam, his left leg has decreased sensation and decreased movement, unable to differentiate if it is secondary to CVA or from acute vertebral fracture neuropathy. He has slightly slurred speech and states he is noted that occurring over the past week. After multiple unsuccessful rounds of labetalol he was placed on a Cardene drip. He will be admitted to ICU for further evaluation and treatment. Allergies No Known Allergies Allergy (Unverified 12/27/15 06:03) Home medications list reviewed: Yes (none) - Past Medical/Surgical History Has patient received pneumonia vaccine in the past: No -: Hypertension -: Alcohol misuse -: Previous CVA -: Back pain -: Right carpal tunnel repair Psychosocial/ Personal History: Lives alone. Drinks daily. - Family History Father History Unknown: Yes Mother History Unknown: Yes - Social History Smoking Status: Never smoker Alcohol use: Yes CD- Drugs: No Caffeine use: Yes Place of Residence: Home Review of Systems 10-point ROS is otherwise unremarkable General: Weakness, Malaise Eyes: Unremarkable ENT: Unremarkable Respiratory: Unremarkable Cardiovascular: Unremarkable Gastrointestinal: Unremarkable Genitourinary: Incontinence, As per HPI Musculoskeletal: Back Pain, As per HPI Integumentary: Unremarkable Neurological: Weakness, Numbness, Incoordination, Change in Speech, As per HPI Lymphatics: Unremarkable Physical Examination - Vital Signs Blood Pressure: 167/96 Pulse: 96 Respirations: 20 Pulse Ox (%): 93 - Physical Exam General: Alert, Oriented x3, Disheveled, Other (Incontinent) HEENT: Atraumatic, Normocephalic Neck: JVD not distended Respiratory: Normal air movement Cardiovascular: Regular rate/rhythm, Normal S1 S2 Capillary refill: <2 Seconds Gastrointestinal: Normal bowel sounds, Soft and benign Musculoskeletal: Other (Unable to move left leg well) Integumentary: Other (Complains of paresthesias to left leg up to thigh, pulses present bilaterally and equal) Neurological: Normal affect, Abnormal speech, Abnormal strength, Abnormal tone Lymphatics: No axilla or inguinal lymphadenopathy External genitalia: Deferred Rectal: Deferred - Studies Laboratory Data (last 24 hrs) 03/21/24 03/21/24 03/21/24 09:35 09:35 09:35 WBC 11.00 H Hgb 16.4 Hct 49.3 H Plt Count 167 PT 12.2 INR 1.09 Sodium 139 Potassium 3.8 BUN 10 Creatinine 1.25 Glucose 122 H Magnesium 1.9 Total Bilirubin 0.6 AST 27 ALT 29 Alkaline Phosphatase 80 Assessment and Plan - Plan CVA Swallow study Antiplatelet and statin therapy Folic acid Telemetry Consult neurology Consult for inpatient rehab versus SNF MRI of the brain - "Small acute right basal ganglia lacunar infarct. Sequela of remote basal ganglia, deep white matter, and brainstem infarcts likely reflecting hypertensive microhemorrhages" Echocardiogram and carotid Doppler Physical therapy/Occupational Therapy/speech therapy evaluation Neurochecks every 4 hours, NIH stroke scale every shift NIHSS every shift Lumbar compression fracture Follow-up outpatient with Dr. Parth pelaez Neurovascular assessment q4h Dilaudid 1 mg IV every 8 as needed EtOH misuse Folic acid supplementation Librium 3 times daily Observe for signs and symptoms of detox tremens Hypertensive urgency Cardene drip for now to keep MAP around 60 DVT prophylaxis GI prophylaxis Plan to discharge in: Greater than 2 days - Advance Directives Does patient have a Living Will: No Does patient have a Durable POA for Healthcare: No - Code Status/Comfort Care Code Status Assessed: Yes (Full)
[2024-03-21] MEDS ORDERED: SODIUM CHLORIDE 0.9% 10ML INJ IV PRN (13:33)
[2024-03-21] MEDS: ALBUTEROL 2.5 MG/3 ML NEB SOL NEB SCH (13:44)
[2024-03-21] MEDS: IPRATROPIUM BROM 0.5MG/2.5ML NEB SCH (13:44)
[2024-03-21] MEDS: Nicardipine/NS 25 MG/250 ML KIT IV SCH (13:58)
[2024-03-21] MEDS: FLU (Fluarix Triv) TS24-25(6MOS UP)/PF 45 MCG/0.5 ML Syringe IM ONE (14:15)
--- NOTE | 2024-03-21 15:32 | RAD REPORT ---
EXAMINATION: MRI BRAIN WITHOUT CONTRAST CLINICAL INDICATION: Male, 54 years old. CVA eval TECHNIQUE: Multiplanar multisequence MR images of the brain were obtained without intravenous contras t. Unless otherwise specified, incidental findings do not require dedicated imaging follow-up. [id number]. COMPARISON: Same-day head CT FINDINGS: INTRACRANIAL: Small acute right basal ganglia lacunar infarct. There is a background of remote bilate ral lacunar infarcts. There is fairly extensive susceptibility artifact in the region of the basal ganglia as well as scattered throughout the brainstem and cortices consistent with sequela of remote hemorrhagic infarcts. Background of moderate chronic small vessel ischemic changes. Remote deep white matter lacunar infarcts. Cerebral atrophy. VASCULATURE: Normal signal voids in the larger intracranial arteries and dural venous sinuses. SINUSES: The paranasal sinuses and mastoid air cells are predominantly clear. BONE: The marrow signal pattern is within normal limits. IMPRESSION: Small acute right basal ganglia lacunar infarct. Sequela of remote basal ganglia, deep white matter, and brainstem infarcts likely reflecting hypertensive microhemorrhages.
[2024-03-21] MEDS: chlordiazePOXIDE HCl 25 MG CAP PO SCH (16:34)
[2024-03-21] MEDS: ATORVASTATIN 80 MG TAB PO SCH (20:00)
[2024-03-21] MEDS: HYDROMORPHONE HCL 1 MG/ML INJ IV PRN (20:00)
[2024-03-21] MEDS: FOLIC ACID 1 MG TABLET PO SCH (20:00)
[2024-03-22] MEDS: HYDROMORPHONE HCL 1 MG/ML INJ IV PRN (01:56)
[2024-03-22 05:45] LABS: Absolute Eosinophils 0.1 K/uL (0-0.5); Absolute Lymphocytes (CBC) 1.5 K/uL (0.7-4.9); Absolute Monocytes 0.5 K/uL (0.1-1.3); Absolute Neutrophil 4.8 K/uL (1.8-8.0); Basophils % 0.7 % (0-1.3); Eosinophils % 1.1 % (0-4.4); Hemoglobin 14.7 g/dL (13.6-17.9); MCH 33.3 pg (27.0-35.0); MCHC 34.2 g/dL (32.0-36.0); MCV 97.2 fL (80-100); MPV 9.4 fL (7.6-11.3); Monocytes % 7.6 % (3.3-12.3); Neutrophils % 69.6 % (41.7-73.7); Nucleated Red Blood Cells % 0.1 % (0-0); Platelets 159 thou/uL (152-406); RBC Red Blood Cell Count 4.43 M/uL (4.33-5.43); Red Cell Distribution Width 12.9 % (12.1-15.2)
[2024-03-22 05:59] LABS: PT Prothrombin Time 12.1 SECONDS (9.4-12.5); PTT, Activated Partial Thromb 28.4 SECONDS (24.3-36.9); Protime INR 1.08
[2024-03-22 06:11] LABS: Albumin 3.2 g/dL (3.4-5.0); Albumin/Globulin Ratio 0.8 (1.1-1.8); Anion Gap 8.8 mEq/L (5.0-15.0); Bilirubin Total 1.4 mg/dL (0.2-1.0); Globulin 4.1 g/dL (2.3-3.5); Magnesium 1.8 mg/dL (1.6-2.4); Potassium 3.8 mEq/L (3.5-5.1); Protein, Total 7.3 g/dL (6.4-8.2)
[2024-03-22] MEDS: POTASSIUM CL SA 10 MEQ TAB PO ONE (08:30)
[2024-03-22] MEDS: HYDROMORPHONE ORAL 4 MG TAB PO PRN (08:31)
[2024-03-22] MEDS: CLOPIDOGREL 75 MG TABLET PO SCH (08:32)
[2024-03-22] MEDS: ASPIRIN EC 81 MG TAB PO SCH (08:32)
[2024-03-22] MEDS: ENOXAPARIN 40 MG/0.4 ML SQ SCH (08:33)
[2024-03-22] MEDS: PANTOPRAZOLE 40 MG INJ IVP SCH (08:33)
[2024-03-22] MEDS: AMLODIPINE 10 MG TAB PO SCH (09:17)
[2024-03-22] MEDS: HYDRALAZINE HCL 20 MG/ML VIAL IV PRN (12:20)
--- NOTE | 2024-03-22 12:30 | P.PN ---
Subjective Date of Service: 03/22/24 Primary Care Provider: None Chief Complaint: back pain, leg weakness Patient has persistent left-sided weakness. He could not ambulate because of the left lower extremity weakness. Blood pressure remained severe elevated. Patient denies any headache. No sign of alcohol withdrawal. Physical Examination - Vital Signs Temperature: 98.1 F Blood Pressure: 179/112 Pulse: 70 Respirations: 18 Pulse Ox (%): 93 Assessment And Plan - Plan Physical examination General: Alert and oriented x3, NAD, HEENT: Conjunctiva not pale, anicteric sclera Neck: Supple, no elevated JVD Heart: Heart sounds 1 and 2 normal, regular rhythm, normal rate, no pedal edema Lungs: Clear to auscultation bilaterally, adequate breath sounds bilaterally, no rhonchi or crackles. Abdomen: Soft, nondistended, nontender, normal bowel sounds. Extremities: No tenderness, no deformity Skin: Normal skin turgor, no rash, no nodules or ulcers. Neuro: Left-sided weakness, no cranial nerve deficit, normal speech. Psychiatry: Normal mood, no agitation. Assessment and plan Acute CVA with left-sided weakness Hypertensive emergency Associated hypertensive microhemorrhages. MRI of the brain - "Small acute right basal ganglia lacunar infarct. Sequela of remote basal ganglia, deep white matter, and brainstem infarcts likely reflecting hypertensive microhemorrhages" Patient need aggressive blood pressure control, target systolic blood pressure between 140-160 Nicardipine drip weaned off. Patient blood pressure fluctuates. Patient started on amlodipine and Coreg. Continue Plavix and aspirin And high-dose Lipitor. Folic acid Neurology Dr. Dumas input appreciated. PT evaluation noted. Continue PT Speech therapy and OT to evaluate. Echocardiogram and carotid Doppler Neurochecks. Anticipating disposition to rehab. Lumbar compression fracture Not stated as stated. Involved 30% vertebral height. Follow-up outpatient with spine surgery Dr. Shyam Alba No lifting Neurovascular assessment q4h Analgesics as needed. Alcohol abuse Alcohol withdrawal syndrome Folic acid supplementation Continue CIWA with Librium. DVT prophylaxis: Lovenox Advanced directive: full code
[2024-03-22] MEDS ORDERED: HALOPERIDOL LACT 5 MG/ML INJ IM PRN (12:32)
[2024-03-22] MEDS ORDERED: FLUMAZENIL 0.1 MG/ML (5 mL VIAL) IV PRN (12:32)
[2024-03-22] MEDS: LORazepam 2 MG/ML VIAL IV PRN (12:45)
[2024-03-22] MEDS: carvediloL 25 MG TAB PO SCH (13:23)
[2024-03-22] MEDS: DEXMEDETOMIDINE HCL 1,000 MCG in NA CHLORIDE 0.9% 490 ML IV SCH (15:35)
--- NOTE | 2024-03-22 18:10 | RAD REPORT ---
EXAMINATION: ONE VIEW CHEST XR CLINICAL INDICATION: PICC line confirmation TECHNIQUE: Frontal chest projection is submitted. Examination is limited by patient positioning and t echnique. COMPARISON: No prior exam. FINDINGS: Right PICC line has tip in the SVC. The lungs are grossly clear. The heart is upper limit of normal i n size. No displaced fractures identified.
[2024-03-22] MEDS: Mupirocin NASAL 2 APPL/1 GM TUBE NAS SCH (20:11)
--- NOTE | 2024-03-22 23:25 | CON ---
Reason For Consultation: Consultation called because of stroke. History Of Present Illness: Mr. Ba is a 54-year-old right-handed patient with uncont rolled untreated hypertension and yyv-fakwqmy-eqvptpwwy diabetes mellitus, who has had multiple [facility] admissions since 2016 with very elevated blood pressures, at times diastolic in the 120s and syst olic over 200. The reason for this current admission is that the patient has had some chronic back p ain that worsened about 3 to 4 days prior to his admission and on the day of his admission at about 3 a.m., fell in the bathroom, it is back on and he was unable to get up. He crawled to a chair, diamond d a friend who helped him up, and he was brought into the hospital. It was noted that the patient alcantar d significant back pain and imaging of his lower back identified 30% compression fracture of lumbar 2 . However, his brain CT scan did identify 1.5 cm right basal ganglia infarct. The infarct is a lacu raffi infarct, though most likely related to chronic untreated hypertension. However, MRI also showed sequelae of remote basal ganglia infarct, deep white matter ischemic changes, and additionally brains tem infarcts likely representing hypertensive microhemorrhages. He also had cerebral atrophy. His N IH Stroke Scale of 4. The patient was treated with aspirin 162 mg daily, Plavix 75 mg daily, received Lipitor 80 mg at bedt vincenzo in addition to DVT prophylaxis with Lovenox. In addition to the patient's poor compliance with m edications, he admits to drinking 12 or a pack of beer or more daily for at least 30 years. He was p ut on alcohol withdrawal prophylaxis with folic acid, thiamine, multivitamin, and Librium. He did alcantar ve the back pain addressed with Dilaudid. His blood pressure was addressed with Coreg and Apresoline. Past Medical History: As noted above, the patient is noncompliant with treatment for hypertension an d diabetes mellitus. He has a long history of heavy alcohol abuse and has chronic back pain and carp al tunnel on the right. Past Surgical History: Carpal tunnel release on the right. Family History: Noncontributory. Social History: Again heavy alcohol user. Occasional in the past cigarettes, no current cigarettes. No IV drug use and marijuana use. Allergies: NO KNOWN DRUG ALLERGIES. Review of Systems: Reports moderate back pain, left upper and lower extremity weakness, numbness, and difficulty standin g and ambulating because of severe pain. Current Medications: Proventil 0.083 mg nebulizer every 6 hours as needed, Norvasc 10 mg daily, aspi rin 162 mg daily, Lipitor 80 mg at bedtime, Coreg 12.5 mg twice daily, Librium 25 mg every 8 hours sc heduled, Plavix 75 mg daily. He has anxiolytic on board. He has Lovenox 40 mg subcutaneously daily, flumazenil 0.2 mg IV as needed, folic acid 1 mg twice daily, Haldol 5 mg every 4 hours as needed for agitation, Apresoline 10 mg IV every 6 hours as needed, Dilaudid 4 mg every 4 hours as needed, Atrov ent 0.5 mg nebulizer every 6 hours as needed, Ativan 2 mg every 15 minutes as needed for agitation, B actroban nasal spray twice daily, he has nicardipine drip as needed, Protonix 40 mg IV daily, sodium chloride, he did receive with diluent and thiamine 100 mg daily. Physical Examination: Vital Signs: Blood pressure 134/94, pulse 73, respiratory rate 18, temperature 97.5, oxygen saturati on 96%. General: Mr. Ba is lying in the ICU bed, appears to be somewhat wide-eyed wide side, but he is normocephalic, atraumatic. Sclerae anicteric. Oropharynx moist. Neck: Supple. Chest: Clear. Extremities: No clubbing, cyanosis, or edema noted. Neuro: He is alert, oriented to person, situation, place. Follows commands appropriately. He has n o obvious cranial nerve deficits on 2 through 12 and in terms of strength, left upper and lower extre mity 4/5 compared to right side 5/5. Sensation decreased, left compared to right upper and lower ext remity. Coordination intact. Symmetric reflexes. NIH of 4. Laboratory Studies: Complete blood count differential is completely normal today, yesterday was 11, white blood cell count today is 7 and yesterday neutrophils 85.9, today is 69.6. Otherwise, hemoglob in 14.7, hematocrit 43, platelets 159. INR 1.08. His comprehensive metabolic panel unremarkable exc ept blood sugars ranged 116 to 122. Normal sodium, potassium, chloride. Creatinine 1.08. Liver fun ction studies unremarkable except total bilirubin was elevated to 1.4, AST 20, ALT 22, alkaline phosp hatase 62, albumin 3.2, globulin 4.1. His total cholesterol 168, LDL cholesterol 100, HDL 52, choles terol HDL ratio is 3.21. His TSH is 1.21. Chest x-ray shows PICC line is in the tip of superior vena cava. Lungs are grossly clear. Heart upp er level of normal size. No displaced fracture identified. Assessment: Mr. Ba is a 54-year-old patient with a long history of heavy chronic alcohol use. He has had multiple strokes, likely related to uncontrolled hypertension including microhemorrhages and bilateral lacunar infarcts. Currently, has a right basal ganglia stroke with left-sided weakness , numbness, and lumbar compression fracture after falling. Plan: 1.Continue with aggressive management of his hypertension with mild permissive hypertension. Contin ue aspirin, Plavix, folic acid, statin. 2.Continued with alcohol withdrawal protocol. 3.Continue with managing pain and the lumbar compression fracture. He may benefit from kyphoplasty if the neurosurgeons are able to see him and potentially will be done outpatient. His alcohol depend ency to be addressed in a secure environment potentially an alcohol withdrawal program. His complian ce with medications was stressed to the patient and he needs to have a primary care doc for followup. SANIA/MABLE Voice ID: [id number] Report ID: [id number]
[2024-03-23 05:58] LABS: Absolute Eosinophils 0.2 K/uL (0-0.5); Absolute Lymphocytes (CBC) 1.3 K/uL (0.7-4.9); Absolute Monocytes 0.5 K/uL (0.1-1.3); Absolute Neutrophil 4.4 K/uL (1.8-8.0); Basophils % 0.7 % (0-1.3); Eosinophils % 2.8 % (0-4.4); Hematocrit 42.5 % (39.6-49.0); Hemoglobin 14.6 g/dL (13.6-17.9); Lymphocytes % 20.1 % (15.3-44.8); MCH 33.3 pg (27.0-35.0); MCHC 34.3 g/dL (32.0-36.0); MPV 9.5 fL (7.6-11.3); Monocytes % 7.4 % (3.3-12.3); Nucleated Red Blood Cells % 0.2 % (0-0); Platelets 134 thou/uL (152-406); RBC Red Blood Cell Count 4.39 M/uL (4.33-5.43); Red Cell Distribution Width 13.3 % (12.1-15.2)
[2024-03-23 06:12] LABS: Albumin/Globulin Ratio 0.7 (1.1-1.8); Anion Gap 8.8 mEq/L (5.0-15.0); Bilirubin Total 1.3 mg/dL (0.2-1.0); Globulin 4.1 g/dL (2.3-3.5); Magnesium 2.1 mg/dL (1.6-2.4); Phosphorus 2.7 mg/dL (2.5-4.9); Potassium 3.8 mEq/L (3.5-5.1); Protein, Total 7.1 g/dL (6.4-8.2)
[2024-03-23] MEDS: NA CHLORIDE 0.9% 100 ML ONE (06:44)
[2024-03-23] MEDS: KCL 20 MEQ/100 mL IVPB 20 MEQ/100 ML BAG IV SCH (06:45)
[2024-03-23] MEDS: THIAMINE HCL 100 MG TABLET PO SCH (08:19)
--- NOTE | 2024-03-23 11:16 | P.PN ---
Subjective Date of Service: 03/23/24 Primary Care Provider: None Chief Complaint: back pain, leg weakness Patient was experiencing symptoms during 1 yesterday. He was placed on Precedex drip. Blood pressure also severely elevated yesterday requiring nicardipine drip. Nicardipine drip weaned off. Patient is on low-dose Precedex drip. He is drowsy but easily arousable. Physical Examination - Vital Signs Temperature: 98.4 F Blood Pressure: 131/91 Pulse: 57 Respirations: 15 Pulse Ox (%): 97 Assessment And Plan - Plan Physical examination General: Alert and oriented x 2, NAD, HEENT: Conjunctiva not pale, anicteric sclera Neck: Supple, no elevated JVD Heart: Heart sounds 1 and 2 normal, regular rhythm, normal rate, no pedal edema Lungs: Clear to auscultation bilaterally, adequate breath sounds bilaterally, no rhonchi or crackles. Abdomen: Soft, nondistended, nontender, normal bowel sounds. Extremities: No tenderness, no deformity Skin: Normal skin turgor, no rash, no nodules or ulcers. Neuro: Left-sided weakness, no cranial nerve deficit, normal speech. Psychiatry: On Precedex sedation. Assessment and plan Acute CVA with left-sided weakness Hypertensive emergency Associated hypertensive microhemorrhages. MRI of the brain - "Small acute right basal ganglia lacunar infarct. Sequela of remote basal ganglia, deep white matter, and brainstem infarcts likely reflecting hypertensive microhemorrhages" Patient need aggressive blood pressure control, target systolic blood pressure between 140-160 Patient was on nicardipine drip which was weaned off 03/22. Patient started on amlodipine and Coreg but was back on nicardipine drip again yesterday 03/22 due to systolic blood pressure running in the 200s. Blood pressure improved, patient weaned off nicardipine drip 03/23. Continue amlodipine and Coreg. Continue Plavix, aspirin and high-dose Lipitor Continue folic acid Neurology Dr. Dumas input appreciated. PT evaluation noted. Patient currently not able to ambulate. Speech therapy and OT to evaluate. Echocardiogram and carotid Doppler are pending Neurochecks. Continue PT. Anticipating disposition to rehab. Lumbar compression fracture Not unstable Involved 30% vertebral height. Follow-up outpatient with spine surgery Dr. Shyam Alba No lifting Neurovascular assessment q4h Analgesics as needed. Alcohol abuse Alcohol withdrawal syndrome Folic acid supplementation. Patient started on low-dose Precedex drip. Patient is also on Librum. DVT prophylaxis: Lovenox Advanced directive: full code
--- NOTE | 2024-03-23 18:21 | RAD REPORT ---
EXAM: CT brain without contrast HISTORY: CVA COMPARISON: March 21, 2024 TECHNIQUE: Multiple contiguous axial images were obtained and a CT of the brain without contrast.. Sagittal and coronal reconstruction performed. Automated exposure control, adjustment of the mA and/or kV according to patient size, and/or iterative reconstruction. Unless otherwise specified, incidental f indings do not require dedicated imaging follow-up FINDINGS: An intracranial bleed is not seen Ventricles are normal caliber No extra-axial fluid collection noted Since the prior head CT a small low-density area has developed right basal ganglia compatible with pa abad's known acute infarction. Additional infarcts involve the thalamus and basal ganglia bilaterally. No fluid within the visualized sinuses or mastoids noted. IMPRESSION: Small acute right basal ganglia infarct is now visualized on the current head CT. There is no hemorrh agic transformation.
--- NOTE | 2024-03-23 18:29 | RAD REPORT ---
EXAMINATION: CTA HEAD CLINICAL INDICATION: CVA TECHNIQUE: Axial CT images were obtained through the head after 100 cc Isovue-370 intravenous contras t utilizing angiographic protocol with 3D post-processing (maximum intensity projection images, volume rendered images and/or shaded surface rendered images). One or more of the following dose red uction techniques were used: Automated exposure control, adjustment of the mA and/or kV according to patient size, and/or iterative reconstruction. Unless otherwise specified, incidental findings do not require dedicated imaging follow-up. COMPARISON: None FINDINGS: Distal internal carotid, basilar, anterior cerebral, middle cerebral and posterior cerebral arteries do not demonstrate a significant stenosis An aneurysm not noted. No large vessel occlusion IMPRESSION: No acute vascular abnormality displayed
--- NOTE | 2024-03-23 18:30 | RAD REPORT ---
EXAMINATION: Neck Angio CLINICAL INDICATION: cva TECHNIQUE: Axial CT images were obtained from the aortic arch to the skull base after intravenous adm inistration of 100 cc Isovue-370 utilizing angiographic protocol. Multiplanar reformats, as well as 3D post-processing (maximum intensity projection images, volume rendered images and/or shaded surface rendered images) were generated and reviewed. One or more of the following dose reduction techniques were used: Automated exposure control, adjustment of the mA and/or kV according to patient size, and/or iterative reconstruction. Unless otherwise specified, incidental findings do not require dedicated imaging follow-up. COMPARISON: No prior exam. FINDINGS: The visualized aortic arch and great vessels do not demonstrate a significant abnormality Bovine aorta is present The common carotid, internal carotid and external carotid arteries bilaterally are unremarkable The left vertebral artery is dominant and unremarkable Right vertebral artery is very hypoplastic and terminates into the PICA. No significant stenosis noted. A dissection is not seen. Right lobe of the thyroid gland is mildly enlarged. Methods for NASCET criteria: Mild stenosis, 0% to 49%; Moderate stenosis 50% to 69%; Severe stenosis, 70% to 99% IMPRESSION: No acute vascular abnormality displayed
[2024-03-24 06:08] LABS: Absolute Eosinophils 0.2 K/uL (0-0.5); Absolute Lymphocytes (CBC) 1.3 K/uL (0.7-4.9); Absolute Monocytes 0.6 K/uL (0.1-1.3); Absolute Neutrophil 4.3 K/uL (1.8-8.0); Basophils % 0.5 % (0-1.3); Eosinophils % 3.3 % (0-4.4); Hematocrit 42.7 % (39.6-49.0); Hemoglobin 14.6 g/dL (13.6-17.9); Lymphocytes % 20.1 % (15.3-44.8); MCH 33.3 pg (27.0-35.0); MCHC 34.2 g/dL (32.0-36.0); MCV 97.2 fL (80-100); MPV 10.1 fL (7.6-11.3); Monocytes % 8.9 % (3.3-12.3); Neutrophils % 67.2 % (41.7-73.7); Nucleated Red Blood Cells % 0.1 % (0-0); Platelets 156 thou/uL (152-406); RBC Red Blood Cell Count 4.39 M/uL (4.33-5.43); Red Cell Distribution Width 12.9 % (12.1-15.2)
[2024-03-24 06:26] LABS: Albumin/Globulin Ratio 0.7 (1.1-1.8); Anion Gap 9.8 mEq/L (5.0-15.0); Bilirubin Total 1.1 mg/dL (0.2-1.0); Globulin 4.2 g/dL (2.3-3.5); Magnesium 2.1 mg/dL (1.6-2.4); Potassium 3.8 mEq/L (3.5-5.1); Protein, Total 7.2 g/dL (6.4-8.2)
[2024-03-24] MEDS: POTASSIUM 25 MEQ EFFERV TAB PO ONE (07:46)
[2024-03-24] MEDS: LIDOCAINE 4% PATCH TOP SCH (12:23)
--- NOTE | 2024-03-24 14:19 | P.PN ---
Subjective Date of Service: 03/24/24 Primary Care Provider: None Chief Complaint: back pain, leg weakness Patient complaining of uncontrolled back pain. Blood pressure remain elevated, patient is still nicardipine drip. Patient is on low-dose Precedex drip for alcohol withdrawal symptoms. Physical Examination - Vital Signs Temperature: 98.2 F Blood Pressure: 136/86 Pulse: 64 Respirations: 18 Pulse Ox (%): 94 Assessment And Plan - Plan Physical examination General: Alert and oriented x 2, NAD, HEENT: Conjunctiva not pale, anicteric sclera Neck: Supple, no elevated JVD Heart: Heart sounds 1 and 2 normal, regular rhythm, normal rate, no pedal edema Lungs: Clear to auscultation bilaterally, adequate breath sounds bilaterally, no rhonchi or crackles. Abdomen: Soft, nondistended, nontender, normal bowel sounds. Extremities: No tenderness, no deformity Skin: Normal skin turgor, no rash, no nodules or ulcers. Neuro: Left-sided weakness, no cranial nerve deficit, normal speech. Psychiatry: On Precedex sedation. Assessment and plan Acute CVA with left-sided weakness Hypertensive emergency Associated hypertensive microhemorrhages. MRI of the brain - "Small acute right basal ganglia lacunar infarct. Sequela of remote basal ganglia, deep white matter, and brainstem infarcts likely reflecting hypertensive microhemorrhages" Continue blood pressure control with target systolic blood pressure between 140- 160 Patient was on nicardipine drip which was weaned off 03/22. Patient started on amlodipine and Coreg but was back on nicardipine drip again yesterday 03/22 due to systolic blood pressure running in the 200s. Patient is requiring nicardipine drip intermittently. Back pain is likely contributing to the intermittent BP spikes. Continue amlodipine and Coreg. Continue Plavix, aspirin and high-dose Lipitor Continue folic acid Neurology Dr. Dumas input appreciated. PT evaluation noted. Patient currently not able to ambulate. Speech therapy and OT to evaluate. Continue PT Echocardiogram and carotid Doppler are pending Neurochecks. Anticipating disposition to rehab. Lumbar compression fracture Not unstable Involved 30% vertebral height. Follow-up outpatient with spine surgery Dr. Shyam Alba No lifting Neurovascular assessment q4h Analgesics as needed. Trial of lidocaine patch. Alcohol abuse Alcohol withdrawal syndrome Folic acid supplementation. Patient is on low-dose Precedex drip. Patient is also on Librum. Wean off Precedex drip as possible. DVT prophylaxis: Lovenox Advanced directive: full code
[2024-03-25 05:24] LABS: Hemoglobin 15.5 g/dL (13.6-17.9); MCHC 34.1 g/dL (32.0-36.0)
[2024-03-25 05:34] LABS: Absolute Eosinophils 0.2 K/uL (0-0.5); Absolute Lymphocytes (CBC) 1.4 K/uL (0.7-4.9); Absolute Monocytes 0.7 K/uL (0.1-1.3); Absolute Neutrophil 4.1 K/uL (1.8-8.0); Basophils % 0.7 % (0-1.3); Hematocrit 45.5 % (39.6-49.0); Lymphocytes % 21.7 % (15.3-44.8); MCH 33.1 pg (27.0-35.0); MCV 97.2 fL (80-100); MPV 9.6 fL (7.6-11.3); Monocytes % 10.3 % (3.3-12.3); Neutrophils % 64.3 % (41.7-73.7); Nucleated Red Blood Cells % 0.3 % (0-0); Platelets 162 thou/uL (152-406); RBC Red Blood Cell Count 4.68 M/uL (4.33-5.43); Red Cell Distribution Width 13.1 % (12.1-15.2)
--- NOTE | 2024-03-25 06:48 | P.PN ---
Date of Service: 03/25/24 Subjective: denies any new / worsening problems responding to questions appropriately, but slowly Oriented x3. Slow to respond. 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 CT brain (03/21): 1.5 cm low-density area left basal ganglia has the appearance of an infarction. Additional old lacunar infarctions right and left thalamus and basal ganglia MRI brain (03/21): Small acute right basal ganglia lacunar infarct. Sequela of remote basal ganglia, deep white matter, and brainstem infarcts likely reflecting hypertensive microhemorrhages CTA head/neck negative for any acute findings Echo (03/21): normal 60-65% EF, normal diastolic function per nursing notes; official report pending Patient requiring nicardipine drip intermittently. off nicardipine since 03/24 am continue amlodipine, coreg; added 03/22 Back pain is likely contributing to the intermittent BP spikes. Discussed with neuro, target SBP goal: 140-160s Continue Plavix, aspirin, statin, folic acid Dr. Dumas, neuro consulted Continue PT/OT/ST Neurochecks Family looking into SNF Alcohol abuse Alcohol withdrawal syndrome on precedex drip for alcohol withdrawal (03/22-03/24) continue folic acid, librium PRN ativan, haldol L2 compression fracture CT spine (03/21): mild-mod L2 vertebral compression fracture involving 30% vertebral height. Follow-up outpatient with spine surgery Dr. Shyam Alba transition from IV pain medication to PO Pain control - Lidocaine patch added 03/24 No heavy lifting VTE: Lovenox Code: Full Dispo: SNF, pending choice/acceptance anticipate out of ICU in next ~24hrs Time Spent Managing Pts Care (In Minutes): 55
[2024-03-25] MEDS ORDERED: ALBUTEROL 2.5 MG/3 ML NEB SOL NEB PRN (08:23)
[2024-03-25] MEDS ORDERED: IPRATROPIUM BROM 0.5MG/2.5ML NEB PRN (08:23)
[2024-03-25] MEDS: HYDROCODONE/APAP 5/325 MG TAB PO PRN ×2 (11:38→16:11)
--- NOTE | 2024-03-25 12:10 | EKG ---
Test Date: 2024-03-21 Test Time: 09:36:17 [employer]: PAULA MEASUREMENT RESULTS: Intervals: Rate: 99 MA: 162 QRSD: 100 QT: 356 QTc: 456 [place]: P: 72 MA: 162 QRS: -33 T: 48 INTERPRETIVE STATEMENTS: Normal sinus rhythm Possible Left atrial enlargement Left axis deviation Nonspecific T wave abnormality Abnormal ECG No previous ECG available for comparison Electronically Signed On 03-25-24 12:05:57 [employer] by Suraj Blakely
[2024-03-25 23:13] VITALS: BMI 31.4
[2024-03-26 06:29] LABS: Anion Gap 8.8 mEq/L (5.0-15.0); Magnesium 2.2 mg/dL (1.6-2.4); Potassium 3.8 mEq/L (3.5-5.1)
--- NOTE | 2024-03-26 08:18 | P.PN ---
Date of Service: 03/26/24 Subjective: no significant changes overnight. 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 CT brain (03/21): 1.5 cm low-density area left basal ganglia has the appearance of an infarction. Additional old lacunar infarctions right and left thalamus and basal ganglia MRI brain (03/21): Small acute right basal ganglia lacunar infarct. Sequela of remote basal ganglia, deep white matter, and brainstem infarcts likely reflecting hypertensive microhemorrhages CTA head/neck negative for any acute findings Echo (03/21): normal 60-65% EF, normal diastolic function Patient requiring nicardipine drip intermittently. off since 03/24 am continue amlodipine, coreg; added 03/22 Back pain is likely contributing to the intermittent BP spikes. Discussed with neuro, target SBP goal: 140-160s Continue Plavix, aspirin, statin, folic acid Dr. Dumas, neuro consulted Continue PT/OT/ST Neurochecks Family looking into SNF Alcohol abuse Alcohol withdrawal syndrome s/p precedex drip for alcohol withdrawal (03/22-03/24) continue folic acid, librium L2 compression fracture CT spine (03/21): mild-mod L2 vertebral compression fracture involving 30% vertebral height. Follow-up outpatient with spine surgery Dr. Shyam Alba transition from IV pain medication to PO Pain control - Lidocaine patch added 03/24 No heavy lifting VTE: Lovenox Code: Full Dispo: SNF, pending auth downgrade to floor 03/26 Time Spent Managing Pts Care (In Minutes): 55
--- NOTE | 2024-03-26 11:41 | ECHO ---
HEIGHT: 6 ft 3 in WEIGHT: 251 lb 0 oz DATE OF STUDY: 03/21/[address]: Alison Sigala MACHINE FANCY STITCHER-BC 2-DIMENSIONAL: YES M.MODE: YES DOPPLER: YES COLOR FLOW: YES TDS: NO PORTABLE: YES DEFINITY: NO BUBBLE STUDY: NO DIAGNOSIS: CEREBRAL VASCULAR ACCIDENT CARDIAC HISTORY: CATHERIZATION: SURGERY: PROSTHETIC VALVE: PACEMAKER: MEASUREMENTS (cm) DIASTOLIC (NORMALS) SYSTOLIC (NORMALS) IVSd 1.3 (0.6-1.2) LA Diam 2.5 (1.9-4.0) LVEF 60-65% LVIDd 4.7 (3.5-5.7) LVIDs 3.1 (2.0-3.5) %FS 34% LVPWd 1.4 (0.6-1.2) Ao Diam 3.2 (2.0-3.7) 2 DIMENSIONAL ASSESSMENT: RIGHT ATRIUM: NORMAL LEFT ATRIUM: NORMAL RIGHT VENTRICLE: NORMAL LEFT VENTRICLE: NORMAL TRICUSPID VALVE: NORMAL MITRAL VALVE: NORMAL PULMONIC VALVE: NORMAL AORTIC VALVE: NORMAL PERICARDIAL EFFUSION: NONE AORTIC ROOT: NORMAL LEFT VENTRICULAR WALL MOTION: NORMAL. DOPPLER/COLOR FLOW: GRADE I DIASTOLIC DYSFUNCTION. COMMENTS: 1. NORMAL LEFT VENTRICULAR SYSTOLIC FUNCTION. LEFT VENTRICULAR EJECTION FRACTION 60-65%. NORMAL WALL MOTION. 2. NORMAL DIASTOLIC FUNCTION. TECHNOLOGIST: PATRICIA TOMPKINS
[2024-03-27 07:13] LABS: Anion Gap 7.4 mEq/L (5.0-15.0); Magnesium 2.2 mg/dL (1.6-2.4); Potassium 3.4 mEq/L (3.5-5.1)
[2024-03-27] MEDS: POTASSIUM 25 MEQ EFFERV TAB PO ONE (09:00)
[2024-03-27] MEDS: PANTOPRAZOLE 40MG TABLET PO SCH (12:34)
--- NOTE | 2024-03-27 21:36 | P.PN ---
Date of Service: 03/27/24 Subjective: no significant changes overnight. 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 CT brain (03/21): 1.5 cm low-density area left basal ganglia has the appearance of an infarction. Additional old lacunar infarctions right and left thalamus and basal ganglia MRI brain (03/21): Small acute right basal ganglia lacunar infarct. Sequela of remote basal ganglia, deep white matter, and brainstem infarcts likely reflectin g hypertensive microhemorrhages CTA head/neck negative for any acute findings Echo (03/21): normal 60-65% EF, normal diastolic function Patient required nicardipine drip intermittently. off since 03/24 am continue amlodipine, coreg; added 03/22 Back pain is likely contributing to the intermittent BP spikes. Discussed with neuro, target SBP goal: 140-160s Continue Plavix, aspirin, statin, folic acid Dr. Dumas, neuro consulted Continue PT/OT/ST Neurochecks Family looking into SNF Alcohol abuse Alcohol withdrawal syndrome s/p precedex drip for alcohol withdrawal (03/22-03/24) continue folic acid, librium L2 compression fracture CT spine (03/21): mild-mod L2 vertebral compression fracture involving 30% vertebral height. Follow-up outpatient with spine surgery Dr. Shyam Alba transition from IV pain medication to PO Pain control - Lidocaine patch added 03/24 No heavy lifting VTE: Lovenox Code: Full Dispo: SNF, pending auth downgrade to floor 03/26 Time Spent Managing Pts Care (In Minutes): 55
[2024-03-28] MEDS: HYDROMORPHONE HCL 1 MG/ML INJ IV ONE (02:29)
[2024-03-28 06:58] LABS: Anion Gap 7.6 mEq/L (5.0-15.0); Magnesium 2.1 mg/dL (1.6-2.4); Potassium 3.6 mEq/L (3.5-5.1)
[2024-03-28] MEDS: chlordiazePOXIDE HCl 25 MG CAP PO SCH (08:44)
[2024-03-28] MEDS: POTASSIUM CL SA 10 MEQ TAB PO ONE (08:44)
--- NOTE | 2024-03-28 10:40 | P.PN ---
Date of Service: 03/28/24 Subjective: Feeling better overall compared to few days ago responding to questions appropriately. Soft, slow speech. 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 CT brain (03/21): 1.5 cm low-density area left basal ganglia has the appearance of an infarction. Additional old lacunar infarctions right and left thalamus and basal ganglia MRI brain (03/21): Small acute right basal ganglia lacunar infarct. Sequela of remote basal ganglia, deep white matter, and brainstem infarcts likely reflecting hypertensive microhemorrhages CTA head/neck negative for any acute findings Echo (03/21): normal 60-65% EF, normal diastolic function Patient required nicardipine drip intermittently. off since 03/24 am continue amlodipine, coreg; added 03/22 Back pain is likely contributing to the intermittent BP spikes. Discussed with neuro, target SBP goal: 140-160s Continue Plavix, aspirin, statin, folic acid Dr. Dumas, neuro consulted [facility] Alcohol abuse Alcohol withdrawal syndrome s/p precedex drip for alcohol withdrawal (03/22-03/24) continue folic acid continue librium; decreased 03/[address] spine (03/21): mild-mod L2 vertebral compression fracture involving 30% vertebral height. Follow-up outpatient with spine surgery Dr. Shyam Alba transition from IV pain medication to PO Pain control - Lidocaine patch added 03/24 [place] increased 03/28 No heavy lifting VTE: Lovenox Code: Full Dispo: SNF, approved; pending finance/cost Time Spent Managing Pts Care (In Minutes): 45
[2024-03-28] MEDS: HYDROCODONE/APAP 7.5/325 MG TAB PO PRN (12:50)
--- NOTE | 2024-03-29 12:09 | P.PN ---
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 CT brain (03/21): 1.5 cm low-density area left basal ganglia has the appearance of an infarction. Additional old lacunar infarctions right and left thalamus and basal ganglia MRI brain (03/21): Small acute right basal ganglia lacunar infarct. Sequela of remote basal ganglia, deep white matter, and brainstem infarcts likely reflecting hypertensive microhemorrhages CTA head/neck negative for any acute findings Echo (03/21): normal 60-65% EF, normal diastolic function Patient required nicardipine drip intermittently. off since 03/24 am continue amlodipine, coreg; added 03/22 Back pain is likely contributing to the intermittent BP spikes. Discussed with neuro, target SBP goal: 140-160s Continue Plavix, aspirin, statin, folic acid Dr. Dumas, neuro consulted Continue PT/OT/ST Neurochecks Family looking into SNF Alcohol abuse Alcohol withdrawal syndrome s/p precedex drip for alcohol withdrawal (03/22-03/24) continue folic acid continue librium; decreased 03/[address] spine (03/21): mild-mod L2 vertebral compression fracture involving 30% vertebral height. Follow-up outpatient with spine surgery Dr. Shyam Alba transitioned from IV pain medication to PO Pain control - Lidocaine patch added 03/24 [place] increased 03/28 No heavy lifting VTE: Lovenox Code: Full Dispo: SNF, approved; pending finance/cost Time Spent Managing Pts Care (In Minutes): 45
--- NOTE | 2024-03-30 10:37 | P.PN ---
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 CT brain (03/21): 1.5 cm low-density area left basal ganglia has the appearance of an infarction. Additional old lacunar infarctions right and left thalamus and basal ganglia MRI brain (03/21): Small acute right basal ganglia lacunar infarct. Sequela of remote basal ganglia, deep white matter, and brainstem infarcts likely reflecting hypertensive microhemorrhages CTA head/neck negative for any acute findings Echo (03/21): normal 60-65% EF, normal diastolic function Patient required nicardipine drip intermittently. off since 03/24 am continue amlodipine, coreg; added 03/22 Back pain likely contributed to the intermittent BP spikes. Discussed with neuro, target SBP goal: 140-160s Continue Plavix, aspirin, statin, folic acid Dr. Dumas, neuro consulted Continue PT/OT/ST Neurochecks Family looking into SNF - waiting updates Alcohol abuse Alcohol withdrawal syndrome s/p precedex drip for alcohol withdrawal (03/22-03/24) continue folic acid continue librium; decreased 03/28 - wean off L2 compression fracture CT spine (03/21): mild-mod L2 vertebral compression fracture involving 30% vertebral height. Follow-up outpatient with spine surgery Dr. Shyam Alba transitioned from IV pain medication to PO Pain control - Lidocaine patch added 03/24 [place] increased 03/28 No heavy lifting VTE: Lovenox Code: Full Dispo: SNF, approved; pending finance/cost parents updated at bedside today Time Spent Managing Pts Care (In Minutes): 35
--- NOTE | 2024-03-31 10:22 | P.PN ---
Date of Service: 03/31/24 Subjective: no issues overnight urine slightly darker pending placement back pain more tolerable compared to few days ago. 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 CT brain (03/21): 1.5 cm low-density area left basal ganglia has the appearance of an infarction. Additional old lacunar infarctions right and left thalamus and basal ganglia MRI brain (03/21): Small acute right basal ganglia lacunar infarct. Sequela of remote basal ganglia, deep white matter, and brainstem infarcts likely reflecting hypertensive microhemorrhages CTA head/neck negative for any acute findings Echo (03/21): normal 60-65% EF, normal diastolic function Patient required nicardipine drip intermittently. off since 03/24 am continue amlodipine, coreg; added 03/22 Back pain likely contributed to the intermittent BP spikes. Discussed with neuro, target SBP goal: 140-160s Continue Plavix, aspirin, statin, folic acid Dr. Dumas, neuro consulted Continue PT/OT/ST Neurochecks Family looking into SNF - looking for affordable options, CM/SS consulted and have sent off referrals Alcohol abuse Alcohol withdrawal syndrome s/p precedex drip for alcohol withdrawal (03/22-03/24) continue folic acid continue librium; decreased 03/28 - weaned off 03/30, doing well L2 compression fracture CT spine (03/21): mild-mod L2 vertebral compression fracture involving 30% vertebral height. Follow-up outpatient with spine surgery Dr. Shyam Alba transitioned from IV pain medication to PO Pain control - Lidocaine patch added 03/24 [place] increased 03/28 No heavy lifting VTE: Lovenox Code: Full Dispo: SNF parents updated at bedside 03/30 Time Spent Managing Pts Care (In Minutes): 35
--- NOTE | 2024-04-01 17:32 | P.PN ---
Subjective Date of Service: 04/01/24 Primary Care Provider: None Chief Complaint: back pain, leg weakness Patient is awake but appeared to be slow to respond He states his back pain is better. No reported agitation. Physical Examination - Vital Signs Temperature: 98.0 F Blood Pressure: 135/87 Pulse: 68 Respirations: 20 Pulse Ox (%): 93 Assessment And Plan - Plan Physical examination General: Alert and oriented x 2, NAD, HEENT: anicteric sclera Neck: Supple, no elevated JVD Heart: Heart sounds 1 and 2 normal, regular rhythm, normal rate, no pedal edema Lungs: Clear to auscultation bilaterally, adequate breath sounds bilaterally, no rhonchi or crackles. Abdomen: Soft, nondistended, nontender, normal bowel sounds. Extremities: No tenderness, no deformity Skin: Normal skin turgor, no rash, no nodules or ulcers. Neuro: Left-sided weakness, no cranial nerve deficit, normal speech. Psychiatry: Psychomotor retardation. 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 CT brain (03/21): 1.5 cm low-density area left basal ganglia has the appearance of an infarction. Additional old lacunar infarctions right and left thalamus and basal ganglia MRI brain (03/21): Small acute right basal ganglia lacunar infarct. Sequela of remote basal ganglia, deep white matter, and brainstem infarcts likely reflecting hypertensive microhemorrhages CTA head/neck negative for any acute findings Echo (03/21): normal 60-65% EF, normal diastolic function Patient required nicardipine drip intermittently. off since 03/24 am continue amlodipine, coreg; added 03/22 Back pain likely contributed to the intermittent BP spikes. Continue Plavix, aspirin, statin, folic acid Dr. Dumas, neuro consulted Continue PT/OT/ST Neurochecks Awaiting SNF placement. Alcohol abuse Alcohol withdrawal syndrome s/p precedex drip for alcohol withdrawal (03/22-03/24) continue folic acid Patient weaned off Librum. He is still experiencing some psychomotor retard ation likely related to residual effect of Librium. L2 compression fracture CT spine (03/21): mild-mod L2 vertebral compression fracture involving 30% vertebral height. Follow-up outpatient with spine surgery Dr. Shyam Alba transitioned from IV pain medication to PO Pain control with [place] and lidocaine patch. No heavy lifting VTE: Lovenox Code: Full Dispo: SNF
[2024-04-02 06:21] LABS: Absolute Eosinophils 0.2 K/uL (0-0.5); Absolute Lymphocytes (CBC) 1.1 K/uL (0.7-4.9); Absolute Monocytes 0.7 K/uL (0.1-1.3); Basophils % 0.7 % (0-1.3); Eosinophils % 2.7 % (0-4.4); Hematocrit 42.4 % (39.6-49.0); Hemoglobin 14.5 g/dL (13.6-17.9); MCHC 34.2 g/dL (32.0-36.0); MCV 96.5 fL (80-100); MPV 9.6 fL (7.6-11.3); Monocytes % 10.2 % (3.3-12.3); Neutrophils % 70.4 % (41.7-73.7); Nucleated Red Blood Cells % 0.1 % (0-0); Platelets 213 thou/uL (152-406); RBC Red Blood Cell Count 4.39 M/uL (4.33-5.43); Red Cell Distribution Width 12.7 % (12.1-15.2)
[2024-04-02 06:39] LABS: Anion Gap 7.7 mEq/L (5.0-15.0); Potassium 3.7 mEq/L (3.5-5.1)
[2024-04-02] MEDS: POTASSIUM CL SA 10 MEQ TAB PO ONE (08:55)
--- NOTE | 2024-04-02 15:55 | P.PN ---
Subjective Date of Service: 04/02/24 Primary Care Provider: None Chief Complaint: back pain, leg weakness Patient denies any new complaint. No reported agitation. He is tolerating diet. Physical Examination - Vital Signs Temperature: 98 F Blood Pressure: 154/93 Pulse: 71 Respirations: 18 Pulse Ox (%): 94 Assessment And Plan - Plan Physical examination General: Alert and oriented x 2, NAD, Neck: No elevated JVD Heart: Heart sounds 1 and 2 normal, regular rhythm, normal rate, no pedal edema Lungs: Clear to auscultation bilaterally, adequate breath sounds bilaterally, no rhonchi or crackles. Abdomen: Soft, nondistended, nontender, normal bowel sounds. Extremities: No tenderness, no deformity Skin: Normal skin turgor, no rash, no nodules or ulcers. Neuro: Left-sided weakness, no cranial nerve deficit, normal speech. Psychiatry: Psychomotor retardation improving. 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 CT brain (03/21): 1.5 cm low-density area left basal ganglia has the appearance of an infarction. Additional old lacunar infarctions right and left thalamus and basal ganglia MRI brain (03/21): Small acute right basal ganglia lacunar infarct. Sequela of remote basal ganglia, deep white matter, and brainstem infarcts likely reflecting hypertensive microhemorrhages CTA head/neck negative for any acute findings Echo (03/21): normal 60-65% EF, normal diastolic function Patient required nicardipine drip intermittently. off since 03/24 am continue amlodipine, coreg. Back pain likely contributed to the intermittent BP spikes. Continue Plavix, aspirin, statin, folic acid Dr. Dumas, neuro consulted Continue PT/OT/ST Neurochecks Awaiting SNF placement. Alcohol abuse Alcohol withdrawal syndrome s/p precedex drip for alcohol withdrawal (03/22-03/24) continue folic acid Patient weaned off Librum. Psychomotor retardation likely related to residual effect of Librium is improving L2 compression fracture CT spine (03/21): mild-mod L2 vertebral compression fracture involving 30% vertebral height. Follow-up outpatient with spine surgery Dr. Shyam Alba transitioned from IV pain medication to PO Continue pain control with [place] and lidocaine patch. No heavy lifting VTE: Lovenox Code: Full Dispo: SNF
[2024-04-02 22:30] VITALS: O2SAT 99
[2024-04-03 07:23] LABS: Anion Gap 9.7 mEq/L (5.0-15.0); Potassium 3.7 mEq/L (3.5-5.1)
[2024-04-03] MEDS: POTASSIUM CL SA 10 MEQ TAB PO ONE (08:28)
--- NOTE | 2024-04-03 09:09 | P.DS ---
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 CT head noted 1.5 cm age indetermiante low-density area left basal ganglia, additional old lacunar infarctions right and left thalamus and basal ganglia. MRI brain confirmed small acute right basal ganglia lacunar infarct. MRI also noted sequela of remote basal ganglia, deep white matter, and brainstem infarcts likely reflecting hypertensive microhemorrhages. CTA head/neck was negative for any acute findings. Echocardiogram this hospitalization with normal EF and wall motion. Dr. Dumas, neurologist was consulted who recommended continued medical management with aspirin, plavix, statin, folic acid. Also recommended to allow for permissive hypertension with target SBP goal of 140-160s given microhemorrhages. Patient worked with PT/OT throughout hospitalization, and felt patient would benefit from SNF placement to improve strength/endurance prior to returning home. Patient was feeling better, pain well managed, and was deemed stable for discharge. In regards to compression fracture, CT lumbar spine done 03/21 noted mild-mod L2 vertebral compression fracture involving 30% vertebral height. Advised patient to follow up with Dr. Shyam Alba - spinal surgeon - for further discussion/evaluation. Initially requiring intermittent nicardipine drip due severe uncontrolled pain, weaned off 03/24 morning. Back pain slowly improved with time and was well managed with norco, lidocaine patch. Advised to avoid any extraneous activity or heavy lifting. During his his hospitalization, patient was also noted to experience some alcoholic withdrawal symptoms requiring brief precedex drip from 03/22-/03/24. No further episodes. He also received oral librium while hospitalized. Vital Signs/Physical Exam: Temp Pulse Resp BP Pulse Ox 97.8 F 66 19 144/91 H 94 04/03/24 04:00 04/03/24 08:29 04/03/24 06:45 04/03/24 08:29 04/03/24 06:45 General: Alert, In no apparent distress, Oriented x3 HEENT: Mucous membr. moist/pink Neck: Supple, JVD not distended Respiratory: Clear to auscultation bilaterally, Normal air movement Cardiovascular: Regular rate/rhythm, Normal S1 S2 Gastrointestinal: Soft and benign, Non-distended Musculoskeletal: No swelling, No tenderness Integumentary: No cyanosis Neurological: Other (Left-sided weakness) Laboratory Data at Discharge: WBC 7.00 thou/uL (4.3-10.9) 04/02/24 05:55 Hgb 14.5 g/dL (13.6-17.9) 04/02/24 05:55 Hct 42.4 % (39.6-49.0) 04/02/24 05:55 Plt Count 213 thou/uL (152-406) 04/02/24 05:55 PT 12.1 SECONDS (9.4-12.5) 03/22/24 05:27 INR 1.08 03/22/24 05:27 APTT 28.4 SECONDS (24.3-36.9) 03/22/24 05:27 Sodium 137 mEq/L (136-145) 04/03/24 06:21 Potassium 3.7 mEq/L (3.5-5.1) 04/03/24 06:21 BUN 19 mg/dL (7-18) H 04/03/24 06:21 Creatinine 0.78 mg/dL (0.70-1.30) 04/03/24 06:21 Glucose 90 mg/dL (74-106) 04/03/24 06:21 Phosphorus 2.7 mg/dL (2.5-4.9) 03/23/24 05:23 Magnesium 2.1 mg/dL (1.6-2.4) 03/28/24 06:08 Total Bilirubin 1.1 mg/dL (0.2-1.0) H 03/24/24 05:05 AST 26 U/L (15-37) 03/24/24 05:05 ALT 24 U/L (16-61) 03/24/24 05:05 Alkaline Phosphatase 62 U/L (45-117) 03/24/24 05:05 Triglycerides 78 mg/dL (<150) 03/22/24 05:27 Cholesterol 168 mg/dL (<200) 03/22/24 05:27 HDL Cholesterol 52 mg/dL (40-60) 03/22/24 05:27 Cholesterol/HDL Ratio 3.23 03/22/24 05:27 Home Medications: Amlodipine [Norvasc*] 10 mg PO DAILY tab 04/03/24 Aspirin [Aspirin EC 81 MG] 81 mg PO DAILY #30 tab 04/03/24 Atorvastatin Calcium [Lipitor] 80 mg PO BEDTIME tab 04/03/24 Clopidogrel Bisulfate [Plavix*] 75 mg PO DAILY 04/03/24 Folic Acid 1 mg PO DAILY #30 tab 04/03/24 Hydrocodone 7.5/APAP 325 [[place] 7.5/325 mg*] 1 tab PO Q4H PRN #15 tab 04/03/24 Lidocaine 4% Patch [Lidoderm 5% Patch*] 1 patch TOP DAILY pat 04/03/24 Pantoprazole [Protonix Tab*] 40 mg PO DAILYAC tab 04/03/24 Thiamine HCl [Vitamin B-1*] 100 mg PO DAILY 04/03/24 carvediloL [Coreg*] 25 mg PO BID 6AM 6PM tab 04/03/24 New Medications: Aspirin [Aspirin EC 81 MG] 81 mg PO DAILY #30 tab Folic Acid 1 mg PO DAILY #30 tab Hydrocodone 7.5/APAP 325 [[place] 7.5/325 mg*] 1 tab PO Q4H PRN #15 tab PRN Reason: Pain Scale 5-7 (Moderate) Physician Discharge Instructions: Physician discharge instructions: Patient presented with back pain, headache after fall at home secondary to acute right basal ganglia CVA associated with hypertensive microhemorrhages. CT head noted 1.5 cm age indetermiante low-density area left basal ganglia, additional old lacunar infarctions right and left thalamus and basal ganglia. MRI brain confirmed small acute right basal ganglia lacunar infarct. MRI also noted sequela of remote basal ganglia, deep white matter, and brainstem infarcts likely reflecting hypertensive microhemorrhages. CTA head/neck was negative for any acute findings. Echocardiogram this hospitalization with normal EF and wall motion. Dr. Dumas, neurologist was consulted who recommended continued medical management with aspirin, plavix, statin, folic acid. Also recommended to allow for permissive hypertension with target SBP goal of 140-160s given microhemorr hages. Patient worked with PT/OT throughout hospitalization, and felt patient would benefit from SNF placement to improve strength/endurance prior to returning home. Patient was feeling better, pain well managed, and was deemed stable for discharge. In regards to compression fracture, CT lumbar spine done 03/21 noted mild-mod L2 vertebral compression fracture involving 30% vertebral height. Advised patient to follow up with Dr. Shyam Alba - spinal surgeon - for further discussion/evaluation. Initially requiring intermittent nicardipine drip due severe uncontrolled pain, weaned off 03/24 morning. Back pain slowly improved with time and was well managed with norco, lidocaine patch. Advised to avoid any extraneous activity or heavy lifting. During his his hospitalization, patient was also noted to experience some alcoholic withdrawal symptoms requiring brief precedex drip from 03/22-/03/24. No further episodes. He also received oral librium while hospitalized. medications: Aspirin Statin Plavix Folic Acid ?norco ?lidocaine patch Follow up: PCP 3-5 days Neurology 2-[address] Shyam Alba in 2-4 weeks (Orthopedic Spinal Surgeon) please call to schedule / confirm appointments Diet: AHA Activity: Fall precautions Followup: Ruben Dumas MD [ASSOCIATE-ACTIVE - CAN ADMIT] - NONE,NONE [Primary Care Provider] - (Follow up in 2-4 weeks) Shyam Alba MD [ACTIVE - CAN ADMIT] - (Follow up in 2-4 weeks) Time spent managing pt's care (in minutes): 35
[2024-04-03 13:14] VITALS: TEMP 97.9
[2024-04-03 13:17] VITALS: BP 157/94
[2024-04-03] MEDS: HYDROCODONE/APAP 10/325 TAB PO ONE (14:16)
== END 2024-04-03 14:20 | DRG 65 ==
LOC: ER 09:05 → ERHOLD 12:23 → 3RD-ICU 13:12 → 4TH 03-26 12:11
PROVIDERS: ADMIT Internal Medicine; ATTEND Internal Medicine
PROC: 02HV33Z Insertion of Infusion Device into Superior Vena Cava, Percutaneous Approach (ICD-10-PCS; principal; 2024-03-22)
DX: I63.81 Other cerebral infarction due to occlusion or stenosis of small artery (principal); F10.139 Alcohol abuse with withdrawal, unspecified; S32.029A Unspecified fracture of second lumbar vertebra, initial encounter for closed fracture; G81.94 Hemiplegia, unspecified affecting left nondominant side; R29.712 NIHSS score 12; I10 Essential (primary) hypertension; M47.816 Spondylosis without myelopathy or radiculopathy, lumbar region; I16.0 Hypertensive urgency
CPT/HCPCS: 36415; 36569; 70450; 70496; 70498; 70551; 71045; 72131; 80048; 80053; 80061; 80076; 83735; 83880; 84100; 84443; 84484; 85025; 85610; 85730; 93005; 93306; 94640; 96365; 96366; 96375; 97112; 97161; 97165; 97530; 99285; J0360; J1171; J1650; J2003; J2405; J2470; J3480; J7040; J7613; J7644; Q9967